=== PATIENT | female | born 1940 | race Caucasian/White ===

== ENCOUNTER 2018-07-14 21:45 | Inpatient (IN) | payer MEDICARE ==
[2018-07-14] MEDS ORDERED: Piperacillin/Tazobac ADVAN(*) 3.375 GM in NS 0.9% 100 ML* 100 ML IVPB ONE (22:02)
[2018-07-14] MEDS ORDERED: Vancomycin(*) 1,000 MG in NS 0.9% 250 ML* 250 ML IVPB ONE (22:02)
[2018-07-14] MEDS ORDERED: Morphine VIAL* 10 MG/ML 1 ML VIAL IV ONE (22:03)
--- NOTE | 2018-07-14 22:03 | ED ---
Lower Extremity - HPI Summary HPI Summary: Pt is a 77 y/o F presenting to the ED brought in by EMS from [facility] for lower extremity pain in her bilateral legs. The pt reports increased LE edema x1 month and pain throughout the week. The pt denies fever. - History of Current Complaint Chief Complaint: EDShortnessOfBreath Stated Complaint: SOB PER EMS Time Seen by Provider: 07/14/18 21:52 Hx Obtained From: Patient Hx Last Menstrual Period: n/a Mechanism Of Injury: Unknown Onset of Pain: Days Onset/Duration: Still Present Severity Initially: Moderate Severity Currently: Severe Pain Intensity: 9 Pain Scale Used: 0-10 Numeric Timing: Constant, Lasting Days Location: Is Diffuse - lower extremity Character Of Pain: Aching Associated Signs And Symptoms: Positive: Swelling, Redness. Negative: Fever Aggravating Factor(s): Standing, Ambulation, Movement Alleviating Factor(s): Rest Able to Bear Weight: No - Allergies/Home Medications Allergies/Adverse Reactions: Allergies Allergy/AdvReac Type Severity Reaction Status Date / Time Penicillins Allergy Unknown Verified 07/14/18 22:08 Reaction Details Sulfa (Sulfonamide Allergy Unknown Verified 07/14/18 22:07 Antibiotics) Reaction Details Home Medications: Home Medications Fexofenadine HCl 60 mg PO DAILY 07/14/18 [History Confirmed 07/14/18] Fluticasone Propionate 50 mcg INTRANASAL DAILY 07/14/18 [History Confirmed 07/14] Montelukast Sodium TAB* 10 mg PO DAILY 07/14/18 [History Confirmed 07/14/18] Namenda 14 mg PO DAILY 07/14/18 [History Confirmed 07/14/18] Spiriva CAP.INH* 2 puff INH DAILY 07/14/18 [History Confirmed 07/14/18] PMH/Surg Hx/FS Hx/Imm Hx Previously Healthy: No Endocrine/Hematology History: Reports: Hx Diabetes - insulin, Hx Anemia Denies: Hx Anticoagulant Therapy, Hx Blood Disorders, Hx Blood Transfusions, Hx Bone Marrow Disease, Hx Systemic Lupus Erythematosus, Hx Sickle Cell Disease , Hx Thyroid Disease, Hx Unexplained Bleeding Cardiovascular History: Reports: Hx Coronary Artery Disease, Hx Embolism - PAtient states in her corotid artery, Hx Hypercholesterolemia, Hx Hypertension, Hx Syncope - 2 weeks ago in shower Denies: Hx Aneurysm, Hx Angina, Hx Angioplasty, Hx Auto Implanted Cardiovert Defib, Hx Cardiac Arrest, Hx Cardiomegaly, Hx Congenital Heart Disease, Hx Congestive Heart Failure, Hx Deep Vein Thrombosis, Hx Hypotension, Hx Pacemaker/ ICD, Hx Peripheral Vascular Disease, Hx Rheumatic Fever, Hx Valvular Heart Disease Respiratory History: Reports: Hx Chronic Obstructive Pulmonary Disease (COPD), Hx Pneumonia, Hx Seasonal Allergies, Hx Sleep Apnea Denies: Hx Asthma, Hx Chronic Bronchitis, Hx Cystic Fibrosis, Hx Lung Cancer , Hx Pleural Effusion, Hx Pulmonary Edema, Hx Pulmonary Embolism GI History: Reports: Hx Gall Bladder Disease, Hx Gastroesophageal Reflux Disease - TUMS Denies: Hx Cirrhosis, Hx Crohn's Disease, Hx Diverticulosis, Hx Gastrointestinal Bleed, Hx Hiatal Hernia, Hx Irritable Bowel, Hx Jaundice, Hx Obstructive Bowel, Hx Ileostomy, Hx Pyloric Stenosis, Hx Ulcer History: Reports: Other Problems/Disorders - some kind of kidney problem when young, hospitalized. Denies: Hx Acute Renal Failure, Hx Benign Prostatic Hyperplasia, Hx Chronic Renal Failure, Hx Dialysis, Hx Kidney Infection - chronic UTI, Hx Kidney Stones Musculoskeletal History: Reports: Hx Arthritis, Hx Bursitis, Hx Gout - Last year , Hx Orthopedic Injury - Fell on knee 2 weeks ago. Has been to physical therapy Denies: Hx Back Problems, Hx Congenital Bone Abnormalities, Hx Fibromyalgia, Hx Osteoporosis, Hx Scoliosis, Hx Tendonitis Sensory History: Reports: Hx Cataracts, Hx Contacts or Glasses, Hx Glaucoma, Hx Macular Degeneration, Hx Vision Problem Denies: Hx Eye Injury, Hx Eye Prosthesis, Hx Legally Blind, Hx Deafness, Hx Hearing Aid, Hx Hearing Problem Opthamlomology History: Reports: Hx Cataracts, Hx Contacts or Glasses, Hx Glaucoma, Hx Macular Degeneration, Hx Vision Problem Denies: Hx Eye Injury, Hx Eye Prosthesis, Hx Legally Blind Neurological History: Reports: Hx Dementia, Hx Headaches, Hx Transient Ischemic Attacks (TIA) Denies: Hx Developmental Delay, Hx Migraine, Hx Nerve Disease, Hx Seizures, Hx Spinal Cord Injury Psychiatric History: Reports: Hx Anxiety - "sometimes" Denies: Hx Attention Deficit Hyperactivity Disorder, Hx Eating Disorder, Hx Depression, Hx Panic Disorder, Hx Post Traumatic Stress Disorder, Hx Inpatient Treatment, Hx Community Mental Health Tx, Hx Schizophrenia, Hx Bipolar Disorder , Hx Suicide Attempt, Hx of Violent Episodes Against Others, Hx Substance Abuse - Cancer History Hx Chemotherapy: No Hx Radiation Therapy: No Hx Palliative Cancer Treatment: No - Surgical History Surgery Procedure, Year, and Place: BILAT SHOULDER ROTATOR CUFF REPAIRS; BILAT CARPAL TUNNEL, LIPOTRIPSY OF RENAL CALCULI, GALL BLADDER REMOVED. APPENDECTOMY, Carotid stents b/l Hx Anesthesia Reactions: No - Immunization History Date of Tetanus Vaccine: PT STATES UNSURE Date of Influenza Vaccine: NONE Infectious Disease History: No Infectious Disease History: Denies: Hx Clostridium Difficile, Hx Hepatitis, Hx Human Immunodeficiency Virus (HIV), Hx of Known/Suspected MRSA, Hx Shingles, Hx Tuberculosis, Hx Known/ Suspected VRE, Hx Known/Suspected VRSA, History Other Infectious Disease, Traveled Outside the [place] in Last 30 Days - Family History Known Family History: Positive: Hypertension - Social History Lives: [place] Alcohol Use: None Hx Substance Use: No Substance Use Type: Reports: None Hx Tobacco Use: No Smoking Status (MU): Never Smoked Tobacco Review of Systems Negative: Fever Positive: Myalgia, Edema All Other Systems Reviewed And Are Negative: Yes Physical Exam - Summary Physical Exam Summary: VITAL SIGNS: Reviewed. GENERAL: Patient is a well-developed and nourished female who is lying comfortable in the stretcher. Patient is not in any acute respiratory distress. HEAD AND FACE: No signs of trauma. No ecchymosis, hematomas or skull depressions. No sinus tenderness. EYES: PERRLA, EOMI x 2, No injected conjunctiva, no nystagmus. EARS: Hearing grossly intact. Ear canals and tympanic membranes are within normal limits. MOUTH: Oropharynx within normal limits. NECK: Supple, trachea is midline, no adenopathy, no JVD, no carotid bruit, no c- spine tenderness, neck with full ROM. CHEST: Symmetric, no tenderness at palpation LUNGS: Decreased breath sounds bilaterally. CVS: Regular rate and rhythm, S1 and S2 present, no murmurs or gallops appreciated. ABDOMEN: Soft, non-tender. No signs of distention. No rebound no guarding, and no masses palpated. Bowel sounds are normal. EXTREMITIES: Bilateral LE edema and erythema. Tenderness and warmth in L leg. NEURO: Alert and oriented x 3. No acute neurological deficits. Speech is normal and follows commands. SKIN: Dry and warm Triage Information Reviewed: Yes Vital Signs On Initial Exam: Initial Vitals Temp Pulse Resp BP Pulse Ox 98 F 75 22 169/52 94 07/14/18 21:48 07/14/18 21:48 03/05/19 21:48 07/14/18 21:48 07/14/18 21:48 Vital Signs Reviewed: Yes Diagnostics - Vital Signs Vital Signs Temp Pulse Resp BP Pulse Ox 07/14/18 21:48 98 F 75 22 169/52 94 - Laboratory Result Diagrams: 07/14/18 22:18 07/14/18 22:18 Lab Statement: Any lab studies that have been ordered have been reviewed, and results considered in the medical decision making process. - Radiology Chest x-ray Radiology Interpretation Completed By: ED Physician Summary of Radiographic Findings: Bilateral venous congestion. Pending official radiology report. - Ultrasound No standard instances Ultrasound Interpretation Completed By: Radiologist Summary of Ultrasound Findings: No bilateral lower extremity deep vein thrombosis. ED physician has reviewed this report. - EKG 2210 Cardiac Rate: NL - 78bpm EKG Rhythm: Sinus Rhythm ST Segment: Normal Ectopy: None Lower Extremity Course/Dx - Course Course Of Treatment: Pt is a 77 y/o F presenting to the ED brought in by EMS for lower extremity pain in her bilateral legs. The pt reports increased LE edema x1 month and pain throughout the week. The pt denies fever. Upon exam, there is bilateral LE edema and erythema as well as tenderness and warmth in L leg. Pt also has decreased breath sounds. CXR shows bilateral venous congestion. EKG shows NSR at 78bpm. US of LE reveals no bilateral lower extremity deep vein thrombosis. Pt will be admitted to [facility] under Dr. Gallagher with a dx of cellulitis. - Diagnoses Provider Diagnoses: Cellulitis Discharge - Sign-Out/Discharge Documenting (check all that apply): Patient Departure - Discharge Plan Condition: Stable Disposition: ADMITTED TO [facility] Referrals: [facility] PHYSICIAN REFERRAL [Outside] - Attestation Statements Document Initiated by Scribe: Yes Documenting Scribe: Johana Bang Provider For Whom Scribe is Documenting (Include Credential): Glen Vega MD. Scribe Attestation: Johana Deng, scribed for Glen Vega MD. on 07/15/18 at 0146. Status of Scribe Document: Ready Consult Consult: 0035 - Spoke with Dr. Gallagher who will be the accepting physician to [facility].
[2018-07-14] MEDS ORDERED: Furosemide IV* 10 MG/ML VIAL (40 MG) IV ONE (22:04)
[2018-07-14 22:33] LABS: ABS Basophils 0.1 10^3/ul (0-0.2); ABS Eosinophils 0.3 10^3/ul (0-0.6); ABS Lymphocytes 1.4 10^3/ul (1.0-4.8); ABS Monocytes 0.9 10^3/ul (0-0.8); ABS Neutrophils 6.7 10^3/ul (1.5-7.7); ABS Nucleated RBC 0 10^3/ul; Hematocrit 33 % (35-47); Hemoglobin 10.5 g/dl (12.0-16.0); Lymphocyte % 15.1 %; Mean Corpuscular HGB Conc 32 g/dl (31-36); Mean Corpuscular Hemoglobin 29 pg (27-31); Mean Corpuscular Volume 90 fL (80-97); Mean Platelet Volume 7.8 fL (7.4-10.4); Nucleated Red Blood Cells % 0; Platelet Count 262 10^3/ul (150-450); Red Blood Count 3.63 10^6/ul (4.00-5.40); Red Cell Distribution Width 16 % (10.5-15); White Blood Count 9.4 10^3/ul (3.5-10.8)
[2018-07-14 22:43] LABS: Activated Partial Thrombo Time 27.7 seconds (26.0-36.3); INR 0.95 (0.77-1.02)
[2018-07-14 22:52] LABS: ALT 15 U/L (7-52); AST 16 U/L (13-39); Albumin 3.5 g/dL (3.2-5.2); Alkaline Phosphatase 75 U/L (34-104); Anion Gap 6 mmol/L (2-11); BUN/Creatinine Ratio 25.6 (8-20); Blood Urea Nitrogen 32 mg/dL (6-24); C Reactive Protein 21.03 mg/L (<8.01); CO2 Carbon Dioxide 30 mmol/L (22-32); Calcium 9.1 mg/dL (8.6-10.3); Chloride 99 mmol/L (101-111); EGFR African American 50.2 (>60); EGFR Non-African American 41.4 (>60); Globulin 3.4 g/dL (2-4); Glucose 316 mg/dL (70-100); Potassium 4.3 mmol/L (3.5-5.0); Sodium 135 mmol/L (135-145); Total Protein 6.9 g/dL (6.4-8.9)
[2018-07-14 22:53] LABS: Troponin I 0.01 ng/mL (<0.04)
[2018-07-14] MEDS ORDERED: Levofloxacin 750 MG IVPREMIX(* 750 MG/150 ML BAG IVPB ONE (23:20)
[2018-07-15] MEDS ORDERED: Insulin REGULAR(*) 1 UNITS UNIT IV PUSH ONE (00:31)
[2018-07-15] MEDS ORDERED: Ondansetron INJ* 2 MG/ML VIAL IV PRN (01:18)
[2018-07-15] MEDS ORDERED: Docusate CAP* 100 MG PO PRN (01:18)
[2018-07-15] MEDS ORDERED: Senna TAB PO PRN (01:18)
[2018-07-15] MEDS ORDERED: Dextrose 50% Syringe 50 ML* 25 GM/50 ML SYRINGE IV PUSH PRN ×2 (01:21)
[2018-07-15] MEDS ORDERED: Albuterol HFA INHALER* 8 gm MDI INH PRN (01:23)
[2018-07-15 01:37] LABS: % Iron Saturation 11 % (15-55); Iron 41 ug/dL (50-212); Total Iron Binding Capacity 385 mcg/dL (250-450); Transferrin 275 mg/dL (203-362)
[2018-07-15 01:57] LABS: Ferritin 27.5 ng/mL (11-307)
[2018-07-15] MEDS ORDERED: Spiriva Inhaler DEVICE* 1 EACH DEVICE INH SCH ×2 (02:00→09:00)
[2018-07-15 02:47] LABS: Urine Appearance Turbid; Urine Bacteria 1+ (Absent); Urine Bilirubin Negative (Negative); Urine Blood Negative (Negative); Urine Color Yellow; Urine Glucose 3+(>=500 mg/dL) (Negative); Urine Ketones Negative (Negative); Urine Nitrite Negative (Negative); Urine Protein 1+(30 mg/dL) (Negative); Urine Red Blood Cell Trace(0-2/hpf) (Absent); Urine Specific Gravity 1.009 (1.010-1.030); Urine Squamous Epithelial Cell Present (Absent); Urine Urobilinogen Negative (Negative); Urine White Blood Cell 2+(11-20/hpf) (Absent)
--- NOTE | 2018-07-15 04:00 | PN ---
Progress Note - Progress Note Date of Service: 07/15/18 Note: Bladder scan >400, straight cath x 1
[2018-07-15] MEDS: Acetaminophen TAB* 325 MG PO PRN ×3 (04:05→18:22)
[2018-07-15] MEDS: Heparin VIAL(*) 5000 UNITS/ML VIAL (FIVE THOUSAND) SUBCUT SCH ×3 (06:03→20:54)
[2018-07-15 06:04] LABS: ABS Basophils 0.1 10^3/ul (0-0.2); ABS Eosinophils 0.3 10^3/ul (0-0.6); ABS Lymphocytes 1.2 10^3/ul (1.0-4.8); ABS Monocytes 0.9 10^3/ul (0-0.8); ABS Neutrophils 6.6 10^3/ul (1.5-7.7); ABS Nucleated RBC 0 10^3/ul; Eosinophil % 2.9 %; Hematocrit 33 % (35-47); Hemoglobin 10.6 g/dl (12.0-16.0); Lymphocyte % 13.2 %; Mean Corpuscular HGB Conc 33 g/dl (31-36); Mean Corpuscular Hemoglobin 29 pg (27-31); Mean Corpuscular Volume 90 fL (80-97); Mean Platelet Volume 8.1 fL (7.4-10.4); Nucleated Red Blood Cells % 0; Platelet Count 234 10^3/ul (150-450); Red Blood Count 3.63 10^6/ul (4.00-5.40); Red Cell Distribution Width 15 % (10.5-15); White Blood Count 9.1 10^3/ul (3.5-10.8)
[2018-07-15 06:24] LABS: BUN/Creatinine Ratio 26.1 (8-20); EGFR African American 53.1 (>60); EGFR Non-African American 43.9 (>60); HDL Cholesterol 43.3 mg/dL; Potassium 4.1 mmol/L (3.5-5.0)
--- NOTE | 2018-07-15 07:40 | HP ---
CC: [facility] * HISTORY AND PHYSICAL: DATE OF ADMISSION: 07/15/18 TIME OF EVALUATION: 0100 PRIMARY CARE PHYSICIAN: [facility]. CHIEF COMPLAINT: Shortness of breath, lower extremity swelling. HISTORY OF PRESENT ILLNESS: This is a 77-year-old female with a past medical history of hypertension, coronary artery disease, diabetes, and dementia who presented to the emergency room form [facility] for shortness of breath. History is limited due to the patient's dementia, but she states she has been short of breath here and there, unable to quantify how long this has been going on. She states she has been coughing. She denies any chest pain. No nausea, vomiting, or diarrhea. No abdominal pain. She states sometimes she has issues with urinary retention. Normally, she ambulates with a walker. She states she has been gaining some weight and noticed swelling in her legs and tenderness in both upper legs, worse in the left side than the right. Otherwise , remaining review of systems is limited and negative. In the emergency room, the patient had labs, imaging. She was given vancomycin, 2 mg of morphine, Levaquin, 4 units of insulin, 40 mg of Lasix, and referred to the hospitalist service for further evaluation. PAST MEDICAL HISTORY: 1. Morbid obesity. 2. Hypertension. 3. Coronary artery disease. 4. Obstructive sleep apnea. It does not appear the patient wears a CPAP at night, it is unclear why. 5. Diabetes, on insulin. 6. Dementia. 7. CKD. 8. Hyperlipidemia. 9. COPD. 10. GERD. 11. History of urinary retention. 12. History of recurrent UTIs, on prophylaxis. MEDICATIONS: 1. Tylenol 650 mg every 4 hours as needed. 2. Guaifenesin 10 mL every 4 hours as needed for cough. 3. Milk of Magnesia as needed. 4. Sublingual nitro as needed. 5. Albuterol 2 puffs every 4 hours as needed. 6. Namenda XR 14 mg p.o. daily. 7. Singulair 10 mg daily. 8. Nitrofurantoin 50 mg p.o. daily. 9. Omeprazole 20 mg daily. 10. Oxybutynin ER 10 mg daily. 11. Acyclovir 200 mg p.o. daily. 12. Aspirin 81 mg p.o. daily. 13. Cozaar 25 mg daily. 14. Fexofenadine 60 mg daily. 15. Lasix 40 mg daily. 16. Lipitor 80 mg daily. 17. Fluticasone 50 mcg 2 sprays each nostril daily. 18. Multivitamin daily. 19. Spiriva 2 puffs inhaled daily. 20. Metoprolol 50 mg p.o. b.i.d. 21. Lantus 35 units subcu b.i.d. 22. Symbicort 80/4.5 two puffs inhaled b.i.d. 23. NovoLog sliding scale. ALLERGIES: PENICILLIN and SULFA. FAMILY HISTORY: Unable to obtain. SOCIAL HISTORY: The patient resides at [facility]. Her daughter Zulay Wilson [phone] is her healthcare proxy. No history of tobacco, alcohol or illicit drug use. MOLST form is a DNR/DNI, comfort measures, but requesting admission for further workup. REVIEW OF SYSTEMS: Limited due to the patient's dementia. PHYSICAL EXAMINATION GENERAL: No acute distress, resting comfortably. VITALS: Temp 98, pulse rate 73, respiratory rate 17, oxygen saturation 98% on 2 L, blood pressure 145/55. HEENT: Head: Normocephalic. Pupils equal and reactive. Oropharynx: Mucous membranes moist. NECK: Supple. No lymphadenopathy. RESPIRATORY: Diminished breath sounds. Bilateral rales at the bases. No increased work of breathing. CARDIAC: Regular rate and rhythm. Soft systolic murmur heard throughout. ABDOMEN: Morbidly obese. Hypoactive bowel sounds. Soft and nontender. EXTREMITIES: The patient with lower extremity 2+ pitting edema with some mild erythema bilaterally. No warmth. No wounds or drainage. Tender bilaterally. Distal pulses. NEUROLOGIC: Alert and oriented x3. Oriented to place and self. No gross focal neurologic deficits. DIAGNOSTIC STUDIES/LAB DATA: White count 9.4, hemoglobin 10.5, hematocrit 33, platelets 262. INR is 0.95. Sodium 135, potassium 4.3, chloride 99, bicarb 30 , BUN 32, creatinine 1.25, glucose 316. Troponin 0.01. CRP is 21, BNP 180. Chest x- ray consistent with pulmonary edema. Venous Doppler, no bilateral lower extremity DVT. EKG shows normal sinus rhythm. ASSESSMENT: This is a 77-year-old female with a past medical history of diabetes, hypertension, chronic kidney disease, who presents to the emergency room with shortness of breath, lower extremity edema. 1. Shortness of breath with lower extremity edema. Assessment: The patient's history and physical are consistent with acute decompensated congestive heart failure. It is unclear of the etiology behind her heart failure. She does not have any chest pain. Her troponin is negative. It could be dietary related. It does not appear that she has had heart failure in the past. I encouraged her to have an echo as there is not one in our system. There was a concern in the emergency room that the patient had lower extremity cellulitis, though she has no white count, she has a mildly elevated CRP. Her extremities are not warm. I think that there is swelling and erythema bilaterally due to her congestive heart failure. Plan: We will admit to telemetry, trend her troponins. We will continue her on Lasix 40 mg. We will check a bladder scan q.8 hours as the patient has issues with urinary retention. Monitor Is and Os. Obtain an echocardiogram. Continue on the baby aspirin. Continue her on the metoprolol and her Cozaar as well. Check a lipid panel. 2. Anemia. The patient's blood counts have dropped. Normocytic anemia. Denies any GI bleeding. This is compared to 2015 with the most recent CBC done. This could be anemia of chronic disease. Plan: We will check iron studies. 3. Diabetes with an elevated blood sugar in the emergency room. We will check hemoglobin A1c. Continue her on Lantus and lispro sliding scale. 4. Chronic medical problems. We will resume her home medications as prescribed. 5. FEN. Low-salt, diabetic diet. 6. DVT prophylaxis. The patient scores high risk. We will place her on heparin subcu t.i.d. 7. Code status. The patient is a DNR/DNI. PATIENT TIME: Greater than 30 minutes spent doing this history and physical, more than half the time spent in direct patient contact. [id number]/[facility] #: [id number] MARTITA
[2018-07-15] MEDS: Tiotropium CAP.INH* CAP.INH/18 MCG (USE ORDER SET !) INH SCH (08:12)
[2018-07-15] MEDS ORDERED: Nitrofurantoin Macrocrystals* 50 MG CAP PO SCH (09:00)
[2018-07-15] MEDS ORDERED: Memantine XR * 7 MG CAP.XR PO SCH (09:00)
[2018-07-15] MEDS ORDERED: Aspirin EC TAB* 325 MG PO SCH (09:00)
[2018-07-15] MEDS ORDERED: Furosemide IV* 10 MG/ML VIAL (40 MG) IV SCH (09:00)
[2018-07-15] MEDS: Aspirin 81 mg CHEW TAB* 81 MG TAB.CHEW PO SCH (09:32)
[2018-07-15] MEDS: Metoprolol Tartrate TAB* 50 mg PO SCH ×2 (09:32→20:09)
[2018-07-15] MEDS: Pantoprazole TAB * 40 MG TAB PO SCH (09:32)
[2018-07-15] MEDS: Losartan TAB* 25 MG PO SCH (09:32)
[2018-07-15] MEDS: Insulin GLARGINE(*) 1 UNITS UNIT SUBCUT SCH ×2 (09:33→20:54)
[2018-07-15] MEDS: Insulin LISPRO* 1 UNITS UNIT SUBCUT SCH ×6 (09:33→19:16)
[2018-07-15] MEDS: Oxybutynin XL TAB* 5 MG PO SCH (09:42)
[2018-07-15] MEDS: Fluticasone NASAL SPRAY 50MCG* 16 gm SPRAY BTL BOTH NARES SCH (09:42)
[2018-07-15] MEDS: Acyclovir* 200 MG CAP PO SCH (10:37)
[2018-07-15] MEDS ORDERED: Perflutren Lipid Microsphere* 3 ML VIAL ONE (10:43)
--- NOTE | 2018-07-15 14:03 | ECHO ---
Patient: FADY BERMEO [facility] Rec#: [id number] : 1940 Date: 07/15/2018 Age: 77y Weight: kg / NaN lbs Sex: F Room#: 441-01 Admit Date#: 07/15/2018 Type: Inpatient Referring: Johana Gallagher Reading: Montserrat Ribeiro MD Operations Lead: Shana Chandra RN [facility] Transthoracic Echocardiogram Indication: CHF BP: 150/66 HR: 82 Rhythm: NSR Findings History: CAD, HTN, HLD, DM, COPD, RADHA, obesity, syncope Technical Comments: The study is technically limited due to poor acoustic windows. The study is technically limited due to patient body habitus. The study is technically limited due to the patient's history of COPD. Left Ventricle: The left ventricular chamber size is decreased. Moderate concentric left ventricular hypertrophy is observed.High velocities mid cavity, dagger shaped and in LVOT c/w dynamic cavity obstruction. Global left ventricular wall motion and contractility are within normal limits. The left ventricle appears hyperdynamic. The estimated ejection fraction is greater than 65%. Abnormal left ventricular diastolic filling is observed, consistent with impaired relaxation. The left ventricular diastolic filling pattern is consistent with elevated left ventricular end-diastolic pressure. The patient was unable to perform a Valsalva maneuver. Left Atrium: The left atrium is not well visualized. The left atrium is mildly dilated. Right Ventricle: The right ventricle is not well visualized. The right ventricle is slightly dilated. The right ventricular global systolic function is normal. Right Atrium: The right atrium is not well visualized. Aortic Valve: The aortic valve structure is not well visualized. The aortic valve leaflets are mildly thickened. Mild aortic leaflet calcification is visualized. Systolic excursion of the aortic valve is normal. There is no evidence of aortic regurgitation. The mean gradient of the aortic valve is 12 mmHg. The peak instantaneous gradient of the aortic valve is 36 mmHg. The aortic valve area, by peak velocities, is calculated at 1.6 cm2. The aortic valve area, by VTI's, is calculated at 2 cm2. Mitral Valve: There is posterior mitral annular calcification.moderate to severe. The mitral valve leaflets are mildly thickened. There is a trace of mitral regurgitation. There is no evidence of mitral stenosis. Tricuspid Valve: The tricuspid valve leaflets are normal. There is mild tricuspid regurgitation. The right ventricular systolic pressure is estimated at 49 mmHg. There is evidence of moderate pulmonary hypertension. There is no tricuspid stenosis. Pulmonic Valve: The pulmonic valve structure is not well visualized. There is a trace pulmonic regurgitation. There is no pulmonic stenosis. Pericardium: There is no significant pericardial effusion. A pericardial fat pad is visualized. Aorta: The ascending aorta is not well visualized. There is no dilatation of the aortic arch. There is no dilation of the aortic root. Pulmonary Artery: The main pulmonary artery is not well visualized. Venous: The venous system is not well visualized. The inferior vena cava is not visualized. Contrast: Definity was used to optimize study. A total of 4 ml of diluted Definity was given IV. Conclusions The left ventricular chamber size is decreased. Moderate concentric left ventricular hypertrophy is observed. The left ventricle appears hyperdynamic with LV cavity obstruction in systole. The estimated ejection fraction is greater than 65%. Abnormal left ventricular diastolic filling is observed, consistent with impaired relaxation. The left ventricular diastolic filling pattern is consistent with elevated left ventricular end-diastolic pressure. The right ventricle is slightly dilated. The right ventricular global systolic function is normal. The aortic valve leaflets are mildly thickened and calcific with good excursion. 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 There is moderate to severe posterior mitral annular calcification.. There is a trace of mitral regurgitation. There is mild tricuspid regurgitation. There is evidence of moderate pulmonary hypertension estimated at 49 mmHg. No prior echo available to compare. Measurements Name Value Normal Range RVIDd (AP) 2D 2.8 cm (0.9 - 2.6) IVSd (2D) 1.5 cm (0.6 - 1) LVPWd (2D) 1.5 cm (0.6 - 1) IVS:LVPW ratio (2D) 1 ratio - LVIDd (2D) 3.1 cm (3.6 - 5.4) LVIDs (2D) 2 cm - LV FS (2D) 35 % (25 - 45) EF Teichholz (2D) 66 % - Aortic Annulus 2.2 cm (1.4 - 2.6) Ao root diameter (2D) 2.9 cm (2.1 - 3.5) Aortic arch 3 cm (1.8 - 3.4) LA dimension (AP) 2D 4.1 cm (2.3 - 3.8) LAd ISD 4CH 3.9 cm (2.9 - 5.3) LA ISD 4CH W 3.7 cm (2.5 - 4.5) Name Value Normal Range LV mass (2D) 164.66 g - Name Value Normal Range MV E-wave Vmax 1.3 m/sec - MV deceleration time 331 msec - MV A-wave Vmax 0.95 m/sec - MV E:A ratio 1.4 ratio - LV septal e' Vmax 0.04 m/sec - LV lateral e' Vmax 0.06 m/sec - LV E:e' septal ratio 32.5 ratio - LV E:e' lateral ratio 21.7 ratio - Name Value Normal Range AV Vmax 3 m/sec - AV VTI 51.8 cm - AV peak gradient 36 mmHg - AV mean gradient 12 mmHg - LVOT diameter 1.9 cm - LVOT Vmax 1.7 m/sec - LVOT VTI 36.6 cm - LVOT peak gradient 12 mmHg - LVOT mean gradient 5 mmHg - DOI (VTI) 0.71 ratio - DOI (Vmax) 0.57 ratio - EVAN (continuity Vmax) 1.6 cm2 - EVAN (continuity VTI) 2 cm2 - TANA Vmax 0.72 m/sec - Name Value Normal Range MV Vmax 1.8 m/sec - MV VTI 46.5 cm - MV peak gradient 13 mmHg - MV mean gradient 4 mmHg - MV PHT 77 msec - MVA (PHT) 2.9 cm2 - MVA (continuity VTI) 2.2 cm2 - Name Value Normal Range TR Vmax 3.2 m/sec - TR peak gradient 41 mmHg - RAP 8 mmHg - RVSP 49 mmHg - Name Value Normal Range PV Vmax 1.2 m/sec -
--- NOTE | 2018-07-15 15:29 | PN ---
Subjective Date of Service: 07/15/18 Interval History: C/O stiff neck. Less SOB today. Objective Active Medications: Acetaminophen (Tylenol Tab*) 650 mg PO Q4H PRN PRN Reason: FEVER/PAIN Last Admin: 07/15/18 09:35 Dose: 650 mg Acyclovir (Zovirax Cap*) 200 mg PO DAILY [facility] Last Admin: 07/15/18 10:37 Dose: 200 mg Albuterol (Ventolin Hfa Inhaler*) 2 puff INH Q4H PRN PRN Reason: SOB/WHEEZING Aspirin (Aspirin 81 Mg Chew Tab*) 81 mg PO DAILY [facility] Last Admin: 07/15/18 09:32 Dose: 81 mg Atorvastatin Calcium (Lipitor*) 80 mg PO DAILY [facility] Device (Tiotropium Inhaler Device*) 1 each INH .USE w/ SPIRIVA CAPS [facility] Dextrose (D50w Syringe 50 Ml*) 12.5 gm IV PUSH .FOR FS < 60 - SS PRN PRN Reason: FS < 60 Docusate Sodium (Colace Cap*) 100 mg PO BID PRN PRN Reason: CONSTIPATION Fluticasone Propionate (Flonase Nasal [place] 50mcg*) 2 spray BOTH NARES DAILY [facility] Last Admin: 07/15/18 09:42 Dose: 2 spray Heparin Sodium (Porcine) (Heparin Vial(*)) 5,000 units SUBCUT Q8HR [facility] Last Admin: 07/15/18 13:27 Dose: 5,000 units Insulin Glargine (Lantus(*)) 35 units SUBCUT Q12H [facility] Last Admin: 07/15/18 09:33 Dose: 35 units Insulin Human Lispro (Humalog*) 0 units SUBCUT AC [facility]; Protocol Last Admin: 07/15/18 13:26 Dose: 12 units Insulin Human Lispro (Humalog*) 0 units SUBCUT AC [facility]; Protocol Last Admin: 07/15/18 13:26 Dose: 2 units Losartan Potassium (Cozaar Tab*) 50 mg PO DAILY [facility] Last Admin: 07/15/18 09:32 Dose: 50 mg Memantine (Namenda Xr *) 7 mg PO DAILY [facility] Last Admin: 07/15/18 09:42 Dose: 7 mg Metoprolol Tartrate (Lopressor Tab*) 50 mg PO BID [facility] Last Admin: 07/15/18 09:32 Dose: 50 mg Montelukast Sodium (Singulair Tab*) 10 mg PO BEDTIME [facility] Ondansetron HCl (Zofran Inj*) 4 mg IV Q4H PRN PRN Reason: NAUSEA/VOMITING Oxybutynin Chloride (Ditropan Xl Tab*) 10 mg PO DAILY [facility] Last Admin: 07/15/18 09:42 Dose: 10 mg Pantoprazole Sodium (Protonix Tab*) 40 mg PO DAILY [facility] Last Admin: 07/15/18 09:32 Dose: 40 mg Senna (Senokot Tab*) 1 tab PO BID PRN PRN Reason: CONSTIPATION Tiotropium [place] (Spiriva Cap.Inh*) 1 cap INH DAILY [facility] Last Admin: 07/15/18 08:12 Dose: 1 cap Torsemide (Demadex*) 40 mg PO DAILY [facility] Vital Signs - 8 hr 07/15/18 07/15/18 07/15/18 07:37 07:58 08:00 Temperature 97.4 F Pulse Rate 71 Respiratory 18 18 19 Rate Blood Pressure 149/53 (mmHg) O2 Sat by Pulse 99 97 Oximetry 07/15/18 07/15/18 08:14 11:05 Temperature 98.0 F Pulse Rate 78 65 Respiratory 14 16 Rate Blood Pressure 113/50 (mmHg) O2 Sat by Pulse 98 97 Oximetry Oxygen Devices in Use Now: Nasal Cannula Appearance: Alert, partly up in bed, head bent forward by pillow. Flat affect. Looks comfortable. Eyes: No Scleral Icterus Respiratory: Symmetrical Chest Expansion and Respiratory Effort, Clear to Auscultation, Clear to Percussion Cardiovascular: NL Sounds; No Murmurs; No JVD, RRR, No Edema, - Extremities: No Clubbing, Cyanosis, - - 1+ edema BL Skin: No Nodules or Sclerosis, - - Lower legs red and scaly, L worse than R. Neurological: NL Sensation - Cooperative, gave her age as 76, did not know her present residence. Flat affect, passive. No tremor Result Diagrams: 07/15/18 05:34 07/15/18 05:33 Microbiology and Other Data: Microbiology 07/15/18 01:30 Nasal Screen MRSA (PCR) - Final Nasal Mrsa Not Detected Assess/Plan/Problems-Billing Assessment: - Patient Problems (1) Diastolic CHF Current Visit: Yes Status: Acute Code(s): I50.30 - UNSPECIFIED DIASTOLIC ( CONGESTIVE) HEART FAILURE SNOMED Code(s): 359141719 Comment: acute on chronic. Received 2 doses IV furosemide with good diuresis. Start torsemide 60 mg po daily 07/16 (was on furosemide 40 mg daily at SNF). BMP 07/16. (2) Dementia Current Visit: Yes Status: Acute Code(s): F03.90 - UNSPECIFIED DEMENTIA WITHOUT BEHAVIORAL DISTURBANCE SNOMED Code(s): 48987574 Comment: Continue memantine, corrected to SNF dose. (3) DM w/o complication type II Current Visit: No Status: Chronic Code(s): E11.9 - TYPE 2 DIABETES MELLITUS WITHOUT COMPLICATIONS SNOMED Code(s): 229507017 Comment: Continue lantus and SS lispro. Consistent carb diet. (4) CAD (coronary artery disease) Current Visit: No Status: Chronic Code(s): I25.10 - ATHSCL HEART DISEASE OF [place] CORONARY ARTERY W/O ANG PCTRS SNOMED Code(s): 76600420 Comment: Continue aspirin. (5) Morbid obesity Current Visit: Yes Status: Acute Code(s): E66.01 - MORBID (SEVERE) OBESITY DUE TO EXCESS CALORIES SNOMED Code(s): 375767690 Comment: BMI 44.7.
--- NOTE | 2018-07-15 15:37 | PN ---
Subjective Date of Service: 07/15/18 Interval History: See earlier note today. Objective Active Medications: Acetaminophen (Tylenol Tab*) 650 mg PO Q4H PRN PRN Reason: FEVER/PAIN Last Admin: 07/15/18 09:35 Dose: 650 mg Acyclovir (Zovirax Cap*) 200 mg PO DAILY [facility] Last Admin: 07/15/18 10:37 Dose: 200 mg Albuterol (Ventolin Hfa Inhaler*) 2 puff INH Q4H PRN PRN Reason: SOB/WHEEZING Aspirin (Aspirin 81 Mg Chew Tab*) 81 mg PO DAILY [facility] Last Admin: 07/15/18 09:32 Dose: 81 mg Atorvastatin Calcium (Lipitor*) 80 mg PO DAILY [facility] Device (Tiotropium Inhaler Device*) 1 each INH .USE w/ SPIRIVA CAPS [facility] Dextrose (D50w Syringe 50 Ml*) 12.5 gm IV PUSH .FOR FS < 60 - SS PRN PRN Reason: FS < 60 Docusate Sodium (Colace Cap*) 100 mg PO BID PRN PRN Reason: CONSTIPATION Fluticasone Propionate (Flonase Nasal [place] 50mcg*) 2 spray BOTH NARES DAILY [facility] Last Admin: 07/15/18 09:42 Dose: 2 spray Heparin Sodium (Porcine) (Heparin Vial(*)) 5,000 units SUBCUT Q8HR [facility] Last Admin: 07/15/18 13:27 Dose: 5,000 units Insulin Glargine (Lantus(*)) 35 units SUBCUT Q12H [facility] Last Admin: 07/15/18 09:33 Dose: 35 units Insulin Human Lispro (Humalog*) 0 units SUBCUT [facility]; Protocol Last Admin: 07/15/18 13:26 Dose: 12 units Insulin Human Lispro (Humalog*) 0 units SUBCUT AC [facility]; Protocol Last Admin: 07/15/18 13:26 Dose: 2 units Losartan Potassium (Cozaar Tab*) 50 mg PO DAILY [facility] Last Admin: 07/15/18 09:32 Dose: 50 mg Memantine (Namenda Xr *) 7 mg PO DAILY [facility] Last Admin: 07/15/18 09:42 Dose: 7 mg Metoprolol Tartrate (Lopressor Tab*) 50 mg PO BID [facility] Last Admin: 07/15/18 09:32 Dose: 50 mg Montelukast Sodium (Singulair Tab*) 10 mg PO BEDTIME [facility] Non-Formulary Medication (Namenda) 14 mg PO DAILY [facility] Ondansetron HCl (Zofran Inj*) 4 mg IV Q4H PRN PRN Reason: NAUSEA/VOMITING Oxybutynin Chloride (Ditropan Xl Tab*) 10 mg PO DAILY [facility] Last Admin: 07/15/18 09:42 Dose: 10 mg Pantoprazole Sodium (Protonix Tab*) 40 mg PO DAILY [facility] Last Admin: 07/15/18 09:32 Dose: 40 mg Senna (Senokot Tab*) 1 tab PO BID PRN PRN Reason: CONSTIPATION Tiotropium [place] (Spiriva Cap.Inh*) 1 cap INH DAILY [facility] Last Admin: 07/15/18 08:12 Dose: 1 cap Torsemide (Demadex*) 60 mg PO DAILY [facility] Vital Signs - 8 hr 07/15/18 07/15/18 07/15/18 07:37 07:58 08:00 Temperature 97.4 F Pulse Rate 71 Respiratory 18 18 19 Rate Blood Pressure 149/53 (mmHg) O2 Sat by Pulse 99 97 Oximetry 07/15/18 07/15/18 08:14 11:05 Temperature 98.0 F Pulse Rate 78 65 Respiratory 14 16 Rate Blood Pressure 113/50 (mmHg) O2 Sat by Pulse 98 97 Oximetry Oxygen Devices in Use Now: Nasal Cannula Result Diagrams: 07/15/18 05:34 07/15/18 05:33 Microbiology and Other Data: Microbiology 07/15/18 01:30 Nasal Screen MRSA (PCR) - Final Nasal Mrsa Not Detected Assess/Plan/Problems-Billing Assessment: - Patient Problems (1) Diastolic CHF Current Visit: Yes Status: Acute Code(s): I50.30 - UNSPECIFIED DIASTOLIC ( CONGESTIVE) HEART FAILURE SNOMED Code(s): 541874535 Comment: acute on chronic. Received 2 doses IV furosemide with good diuresis. Start torsemide 60 mg po daily 07/16 (was on furosemide 40 mg daily at SNF). BMP 07/16. (2) Dementia Current Visit: Yes Status: Acute Code(s): F03.90 - UNSPECIFIED DEMENTIA WITHOUT BEHAVIORAL DISTURBANCE SNOMED Code(s): 43419033 Comment: Continue memantine, corrected to SNF dose. (3) DM w/o complication type II Current Visit: No Status: Chronic Code(s): E11.9 - TYPE 2 DIABETES MELLITUS WITHOUT COMPLICATIONS SNOMED Code(s): 683869997 Comment: Continue lantus and SS lispro. Consistent carb diet. (4) CAD (coronary artery disease) Current Visit: No Status: Chronic Code(s): I25.10 - ATHSCL HEART DISEASE OF [place] CORONARY ARTERY W/O ANG PCTRS SNOMED Code(s): 31447139 Comment: Continue aspirin. (5) Morbid obesity Current Visit: Yes Status: Acute Code(s): E66.01 - MORBID (SEVERE) OBESITY DUE TO EXCESS CALORIES SNOMED Code(s): 371275146 Comment: BMI 44.7. (6) Dermatitis Current Visit: Yes Status: Acute Code(s): L30.9 - DERMATITIS, UNSPECIFIED SNOMED Code(s): 309842605 Comment: Both lower legs, L > R. HC 1% cream BID ordered.
[2018-07-15] MEDS ORDERED: oxyCODONE/Acetamin 5/325 MG* TAB PO ONE (19:57)
[2018-07-15] MEDS: Atorvastatin* 80 MG TAB PO SCH (20:09)
[2018-07-15] MEDS: Montelukast Sodium TAB* 10 MG PO SCH (20:09)
[2018-07-15] MEDS: Hydrocortisone 1% CREAM* 30 GM TUBE TOPICAL SCH (20:53)
[2018-07-16] MEDS: Heparin VIAL(*) 5000 UNITS/ML VIAL (FIVE THOUSAND) SUBCUT SCH ×2 (05:12→18:30)
[2018-07-16] MEDS: Acetaminophen TAB* 325 MG PO PRN (05:36)
[2018-07-16 06:14] LABS: BUN/Creatinine Ratio 24.8 (8-20); Calcium 8.9 mg/dL (8.6-10.3); EGFR African American 45.1 (>60); EGFR Non-African American 37.3 (>60)
[2018-07-16] MEDS: Tiotropium CAP.INH* CAP.INH/18 MCG (USE ORDER SET !) INH SCH (08:36)
[2018-07-16] MEDS: Insulin LISPRO* 1 UNITS UNIT SUBCUT SCH ×6 (08:39→18:14)
[2018-07-16] MEDS ORDERED: Torsemide TAB* 20 MG PO SCH (09:00)
[2018-07-16] MEDS: Torsemide TAB* 20 MG PO SCH (09:53)
[2018-07-16] MEDS: Metoprolol Tartrate TAB* 50 mg PO SCH ×2 (09:54→20:13)
[2018-07-16] MEDS: Losartan TAB* 25 MG PO SCH (09:55)
[2018-07-16] MEDS: Atorvastatin* 80 MG TAB PO SCH (09:55)
[2018-07-16] MEDS: Aspirin 81 mg CHEW TAB* 81 MG TAB.CHEW PO SCH (09:55)
[2018-07-16] MEDS: Acyclovir* 200 MG CAP PO SCH (09:56)
[2018-07-16] MEDS: Oxybutynin XL TAB* 5 MG PO SCH (09:56)
[2018-07-16] MEDS: oxyCODONE/Acetamin 5/325 MG* TAB PO PRN ×2 (09:56→15:53)
[2018-07-16] MEDS: Insulin GLARGINE(*) 1 UNITS UNIT SUBCUT SCH ×2 (09:57→20:12)
[2018-07-16] MEDS: Pantoprazole TAB * 40 MG TAB PO SCH (09:57)
[2018-07-16] MEDS: MEMANTINE 14 MG PO SCH (09:57)
[2018-07-16] MEDS: Hydrocortisone 1% CREAM* 30 GM TUBE TOPICAL SCH ×2 (09:58→20:17)
--- NOTE | 2018-07-16 11:32 | PN ---
Subjective Date of Service: 07/16/18 Interval History: Pt seen and examined. Meds and labs reviewed. CC: LLE pain/tenderness ROS: Denied OJEDA/dizziness, F/C, N/V, CP, SOB, increased cough, sputum production , abd pain, diarrhea, constipation, , arthralgias, throat pain, and new skin lesions. The rest of the 14 point ROS are unremarkable. PHYSICAL EXAM: GEN APPEARANCE: Awake, not in acute distress, obese HEENT: NC/AT, PERRLA, moist oral mucosa, (-) throat erythema NECK: Soft, supple, (-) cervical LAD, (-)JVD HEART: S1S2 WNL, RRR, No MRG CHEST: CTA, BL, GAE, No W/R/R ABD: Soft, ND/NT, NABS 4x Q EXT: No C/C/+1 BLLE edema, difficult to assess edema given obesity, nonpitting; tender LLE SKIN: Warm to touch PSYCH: No active psychosis, hallucinations, depression, SI/HI Objective Active Medications: Acetaminophen (Tylenol Tab*) 650 mg PO Q4H PRN PRN Reason: FEVER/PAIN Last Admin: 07/16/18 05:36 Dose: 650 mg Acyclovir (Zovirax Cap*) 200 mg PO DAILY [facility] Last Admin: 07/16/18 09:56 Dose: 200 mg Albuterol (Ventolin Hfa Inhaler*) 2 puff INH Q4H PRN PRN Reason: SOB/WHEEZING Aspirin (Aspirin 81 Mg Chew Tab*) 81 mg PO DAILY [facility] Last Admin: 07/16/18 09:55 Dose: 81 mg Atorvastatin Calcium (Lipitor*) 80 mg PO DAILY [facility] Last Admin: 07/16/18 09:55 Dose: 80 mg Device (Tiotropium Inhaler Device*) 1 each INH .USE w/ SPIRIVA CAPS [facility] Dextrose (D50w Syringe 50 Ml*) 12.5 gm IV PUSH .FOR FS < 60 - SS PRN PRN Reason: FS < 60 Docusate Sodium (Colace Cap*) 100 mg PO BID PRN PRN Reason: CONSTIPATION Fluticasone Propionate (Flonase Nasal [place] 50mcg*) 2 spray BOTH NARES DAILY [facility] Last Admin: 07/15/18 09:42 Dose: 2 spray Heparin Sodium (Porcine) (Heparin Vial(*)) 5,000 units SUBCUT Q12H [facility] Hydrocortisone (Hytone Cream 1%*) 1 applic TOPICAL BID [facility] Last Admin: 07/16/18 09:58 Dose: 1 applic Insulin Glargine (Lantus(*)) 35 units SUBCUT Q12H [facility] Last Admin: 07/16/18 09:57 Dose: 35 units Insulin Human Lispro (Humalog*) 0 units SUBCUT [facility]; Protocol Last Admin: 07/16/18 08:39 Dose: Not Given Insulin Human Lispro (Humalog*) 0 units SUBCUT [facility]; Protocol Last Admin: 07/16/18 09:57 Dose: 3 units Losartan Potassium (Cozaar Tab*) 50 mg PO DAILY [facility] Last Admin: 07/16/18 09:55 Dose: 50 mg Memantine (Namenda Xr Cap*) 14 mg PO DAILY [facility] Last Admin: 07/16/18 09:57 Dose: 14 mg Metoprolol Tartrate (Lopressor Tab*) 75 mg PO BID [facility] Last Admin: 07/16/18 09:54 Dose: 75 mg Montelukast Sodium (Singulair Tab*) 10 mg PO BEDTIME [facility] Last Admin: 07/15/18 20:09 Dose: 10 mg Ondansetron HCl (Zofran Inj*) 4 mg IV Q4H PRN PRN Reason: NAUSEA/VOMITING Oxybutynin Chloride (Ditropan Xl Tab*) 10 mg PO DAILY [facility] Last Admin: 07/16/18 09:56 Dose: 10 mg Oxycodone/Acetaminophen (Percocet 5/325 Tab*) 1 tab PO Q4H PRN PRN Reason: PAIN Last Admin: 07/16/18 09:56 Dose: 1 tab Pantoprazole Sodium (Protonix Tab*) 40 mg PO DAILY [facility] Last Admin: 07/16/18 09:57 Dose: 40 mg Senna (Senokot Tab*) 1 tab PO BID PRN PRN Reason: CONSTIPATION Tiotropium [place] (Spiriva Cap.Inh*) 1 cap INH DAILY [facility] Last Admin: 07/16/18 08:36 Dose: 1 cap Torsemide (Demadex*) 60 mg PO DAILY [facility] Last Admin: 07/16/18 09:53 Dose: 60 mg Vital Signs - 8 hr 07/16/18 07/16/18 07/16/18 04:00 04:28 08:36 Temperature 98.3 F Pulse Rate 74 82 Respiratory 18 16 Rate Blood Pressure 152/74 175/70 (mmHg) O2 Sat by Pulse 95 96 Oximetry 07/16/18 07/16/18 09:40 09:56 Temperature Pulse Rate Respiratory 15 Rate Blood Pressure 152/78 (mmHg) O2 Sat by Pulse Oximetry Oxygen Devices in Use Now: Nasal Cannula Result Diagrams: 07/15/18 05:34 07/16/18 05:37 Microbiology and Other Data: Microbiology 07/15/18 01:30 Nasal Screen MRSA (PCR) - Final Nasal Mrsa Not Detected Assess/Plan/Problems-Billing Assessment: - Patient Problems (1) Diastolic CHF Current Visit: Yes Status: Acute Code(s): I50.30 - UNSPECIFIED DIASTOLIC ( CONGESTIVE) HEART FAILURE SNOMED Code(s): 504064223 Comment: -Received 2 doses IV furosemide with good diuresis. -Continue w/Torsemide 60 mg po daily -Continue consistent carbohydrate diet -Will add low Sodium diet to her regimen -Check repeat BNP in AM (2) Dementia Current Visit: Yes Status: Acute Code(s): F03.90 - UNSPECIFIED DEMENTIA WITHOUT BEHAVIORAL DISTURBANCE SNOMED Code(s): 53296022 Comment: Continue memantine, corrected to SNF dose. (3) DM w/o complication type II Current Visit: No Status: Chronic Code(s): E11.9 - TYPE 2 DIABETES MELLITUS WITHOUT COMPLICATIONS SNOMED Code(s): 000939116 Comment: Continue lantus and SS lispro. Consistent carb diet. (4) CAD (coronary artery disease) Current Visit: No Status: Chronic Code(s): I25.10 - ATHSCL HEART DISEASE OF [place] CORONARY ARTERY W/O ANG PCTRS SNOMED Code(s): 73809266 Comment: Continue aspirin. (5) Morbid obesity Current Visit: Yes Status: Acute Code(s): E66.01 - MORBID (SEVERE) OBESITY DUE TO EXCESS CALORIES SNOMED Code(s): 278085452 Comment: BMI 44.7. (6) Dermatitis Current Visit: Yes Status: Acute Code(s): L30.9 - DERMATITIS, UNSPECIFIED SNOMED Code(s): 010823642 Comment: Both lower legs, L > R. HC 1% cream BID ordered. (7) DVT prophylaxis Current Visit: No Status: Acute Code(s): DJR3357 - SNOMED Code(s): 222070392 Comment: -Will change to Heparin SQq12H Status and Disposition: -Pt a resident of [place] -Will await PT eval
[2018-07-16] MEDS: Fluticasone NASAL SPRAY 50MCG* 16 gm SPRAY BTL BOTH NARES SCH (13:31)
[2018-07-16] MEDS: Acetaminophen TAB* 325 MG PO SCH (20:14)
[2018-07-16] MEDS: Gabapentin CAP(*) 100 MG PO SCH (20:14)
[2018-07-16] MEDS: Montelukast Sodium TAB* 10 MG PO SCH (20:14)
[2018-07-17] MEDS: oxyCODONE/Acetamin 5/325 MG* TAB PO PRN ×3 (00:06→16:09)
[2018-07-17] MEDS: Heparin VIAL(*) 5000 UNITS/ML VIAL (FIVE THOUSAND) SUBCUT SCH ×2 (05:09→17:22)
[2018-07-17 05:49] LABS: Hematocrit 31 % (35-47); Hemoglobin 10.1 g/dl (12.0-16.0); Mean Corpuscular HGB Conc 33 g/dl (31-36); Mean Corpuscular Hemoglobin 30 pg (27-31); Mean Corpuscular Volume 91 fL (80-97); Mean Platelet Volume 7.8 fL (7.4-10.4); Platelet Count 241 10^3/ul (150-450); Red Blood Count 3.42 10^6/ul (4.00-5.40); Red Cell Distribution Width 15 % (10.5-15); White Blood Count 10.8 10^3/ul (3.5-10.8)
[2018-07-17 06:05] LABS: Albumin 3.2 g/dL (3.2-5.2); BUN/Creatinine Ratio 22.8 (8-20); Calcium 8.9 mg/dL (8.6-10.3); EGFR African American 38.3 (>60); EGFR Non-African American 31.6 (>60); Globulin 3.3 g/dL (2-4); Phosphorus 4.5 mg/dL (2.5-5.0); Total Bilirubin 0.6 mg/dL (0.2-1.0); Total Protein 6.5 g/dL (6.4-8.9)
[2018-07-17] MEDS: Tiotropium CAP.INH* CAP.INH/18 MCG (USE ORDER SET !) INH SCH (08:14)
[2018-07-17] MEDS: Insulin LISPRO* 1 UNITS UNIT SUBCUT SCH ×5 (08:30→17:57)
[2018-07-17] MEDS: Hydrocortisone 1% CREAM* 30 GM TUBE TOPICAL SCH ×2 (08:40→20:52)
[2018-07-17] MEDS: Fluticasone NASAL SPRAY 50MCG* 16 gm SPRAY BTL BOTH NARES SCH (08:40)
[2018-07-17] MEDS: Metoprolol Tartrate TAB* 50 mg PO SCH ×2 (08:44→20:51)
[2018-07-17] MEDS: Gabapentin CAP(*) 100 MG PO SCH (08:46)
[2018-07-17] MEDS: Oxybutynin XL TAB* 5 MG PO SCH (08:46)
[2018-07-17] MEDS: Atorvastatin* 80 MG TAB PO SCH (08:47)
[2018-07-17] MEDS: Acyclovir* 200 MG CAP PO SCH (08:47)
[2018-07-17] MEDS: Aspirin 81 mg CHEW TAB* 81 MG TAB.CHEW PO SCH (08:47)
[2018-07-17] MEDS: Acetaminophen TAB* 325 MG PO SCH ×2 (08:47→20:50)
[2018-07-17] MEDS: Pantoprazole TAB * 40 MG TAB PO SCH (08:47)
[2018-07-17] MEDS: Losartan TAB* 25 MG PO SCH (08:47)
[2018-07-17] MEDS: Torsemide TAB* 20 MG PO SCH (08:47)
[2018-07-17] MEDS: MEMANTINE 14 MG PO SCH (08:49)
[2018-07-17] MEDS: Insulin GLARGINE(*) 1 UNITS UNIT SUBCUT SCH ×2 (09:39→20:52)
[2018-07-17] MEDS: Amoxicillin/Clavulanate TAB* 500 MG PO SCH ×2 (13:16→20:51)
--- NOTE | 2018-07-17 16:30 | PN ---
Subjective Date of Service: 07/17/18 Interval History: Pt seen and examined. Meds and labs reviewed. CC: Back pain and weakness ROS: Denied OJEDA/dizziness, F/C, N/V, CP, SOB, increased cough, sputum production , abd pain, diarrhea, constipation, dysuria, myalgias, arthralgias, throat pain , and new skin lesions. The rest of the 14 point ROS are unremarkable. PHYSICAL EXAM: GEN APPEARANCE: Awake, not in acute distress HEENT: NC/AT, PERRLA, moist oral mucosa, (-) throat erythema NECK: Soft, supple, (-) cervical LAD, (-)JVD HEART: S1S2 WNL, RRR, No MRG CHEST: CTA, BL, GAE, No W/R/R ABD: Soft, ND/NT, NABS 4x Q EXT: No C/C/E SKIN: Warm to touch PSYCH: No active psychosis, hallucinations, depression, SI/HI Objective Active Medications: Acetaminophen (Tylenol Tab*) 650 mg PO Q4H PRN PRN Reason: FEVER/PAIN Last Admin: 07/16/18 05:36 Dose: 650 mg Acetaminophen (Tylenol Tab*) 975 mg PO BID [facility] Last Admin: 07/17/18 08:47 Dose: 975 mg Acyclovir (Zovirax Cap*) 200 mg PO DAILY [facility] Last Admin: 07/17/18 08:47 Dose: 200 mg Albuterol (Ventolin Hfa Inhaler*) 2 puff INH Q4H PRN PRN Reason: SOB/WHEEZING Amoxicillin/Clavulanate Potassium (Augmentin Tab*) 500 mg PO BID [facility] Last Admin: 07/17/18 13:16 Dose: 500 mg Aspirin (Aspirin 81 Mg Chew Tab*) 81 mg PO DAILY [facility] Last Admin: 07/17/18 08:47 Dose: 81 mg Atorvastatin Calcium (Lipitor*) 80 mg PO DAILY [facility] Last Admin: 07/17/18 08:47 Dose: 80 mg Device (Tiotropium Inhaler Device*) 1 each INH .USE w/ SPIRIVA CAPS [facility] Dextrose (D50w Syringe 50 Ml*) 12.5 gm IV PUSH .FOR FS < 60 - SS PRN PRN Reason: FS < 60 Last Admin: 07/17/18 07:32 Dose: 12.5 gm Docusate Sodium (Colace Cap*) 100 mg PO BID PRN PRN Reason: CONSTIPATION Fluticasone Propionate (Flonase Nasal [place] 50mcg*) 2 spray BOTH NARES DAILY [facility] Last Admin: 07/17/18 08:40 Dose: 2 spray Gabapentin (Neurontin Cap(*)) 400 mg PO BID [facility] Heparin Sodium (Porcine) (Heparin Vial(*)) 5,000 units SUBCUT Q12H [facility] Last Admin: 07/17/18 05:09 Dose: 5,000 units Hydrocortisone (Hytone Cream 1%*) 1 applic TOPICAL BID [facility] Last Admin: 07/17/18 08:40 Dose: 1 applic Insulin Glargine (Lantus(*)) 30 units SUBCUT Q12H [facility] Last Admin: 07/17/18 09:39 Dose: 30 unit Insulin Human Lispro (Humalog*) 0 units SUBCUT AC [facility]; Protocol Last Admin: 07/17/18 13:15 Dose: 3 units Losartan Potassium (Cozaar Tab*) 50 mg PO DAILY [facility] Last Admin: 07/17/18 08:47 Dose: 50 mg Memantine (Namenda Xr Cap*) 14 mg PO DAILY [facility] Last Admin: 07/17/18 08:49 Dose: 14 mg Metoprolol Tartrate (Lopressor Tab*) 75 mg PO BID [facility] Last Admin: 07/17/18 08:44 Dose: 75 mg Montelukast Sodium (Singulair Tab*) 10 mg PO BEDTIME [facility] Last Admin: 07/16/18 20:14 Dose: 10 mg Ondansetron HCl (Zofran Inj*) 4 mg IV Q4H PRN PRN Reason: NAUSEA/VOMITING Oxybutynin Chloride (Ditropan Xl Tab*) 10 mg PO DAILY [facility] Last Admin: 07/17/18 08:46 Dose: 10 mg Oxycodone/Acetaminophen (Percocet 5/325 Tab*) 1 tab PO Q4H PRN PRN Reason: PAIN Last Admin: 07/17/18 16:09 Dose: 1 tab Pantoprazole Sodium (Protonix Tab*) 40 mg PO DAILY [facility] Last Admin: 07/17/18 08:47 Dose: 40 mg Senna (Senokot Tab*) 1 tab PO BID PRN PRN Reason: CONSTIPATION Tiotropium [place] (Spiriva Cap.Inh*) 1 cap INH DAILY [facility] Last Admin: 07/17/18 08:14 Dose: 1 cap Torsemide (Demadex*) 60 mg PO DAILY [facility] Last Admin: 07/17/18 08:47 Dose: 60 mg Vital Signs - 8 hr 07/17/18 07/17/18 07/17/18 08:46 09:43 11:00 Temperature 98.3 F Pulse Rate 62 Respiratory 18 16 16 Rate Blood Pressure 138/49 (mmHg) O2 Sat by Pulse 99 Oximetry 07/17/18 07/17/18 07/17/18 11:37 12:17 15:40 Temperature 98.2 F Pulse Rate 66 Respiratory 16 16 16 Rate Blood Pressure 131/37 (mmHg) O2 Sat by Pulse 95 Oximetry 07/17/18 16:09 Temperature Pulse Rate Respiratory 18 Rate Blood Pressure (mmHg) O2 Sat by Pulse Oximetry Oxygen Devices in Use Now: Nasal Cannula Result Diagrams: 07/17/18 05:32 07/17/18 05:32 Microbiology and Other Data: Microbiology 07/15/18 01:30 Nasal Screen MRSA (PCR) - Final Nasal Mrsa Not Detected Assess/Plan/Problems-Billing Assessment: - Patient Problems (1) Diastolic CHF Current Visit: Yes Status: Acute Code(s): I50.30 - UNSPECIFIED DIASTOLIC ( CONGESTIVE) HEART FAILURE SNOMED Code(s): 638880440 Comment: -Received 2 doses IV furosemide with good diuresis. -Continue w/Torsemide 60 mg po daily -Continue consistent carbohydrate diet -Continue low Sodium diet to her regimen (2) Back pain Current Visit: Yes Status: Acute Code(s): M54.9 - DORSALGIA, UNSPECIFIED SNOMED Code(s): 445435734 Comment: -Continue current pain meds place pt on Gabapentin as ordered (3) Dementia Current Visit: Yes Status: Acute Code(s): F03.90 - UNSPECIFIED DEMENTIA WITHOUT BEHAVIORAL DISTURBANCE SNOMED Code(s): 74269419 Comment: Continue memantine, corrected to SNF dose. (4) DM w/o complication type II Current Visit: No Status: Chronic Code(s): E11.9 - TYPE 2 DIABETES MELLITUS WITHOUT COMPLICATIONS SNOMED Code(s): 779348207 Comment: -Decrease Lantus and D/C ISS; continue carb counts -Consistent carb diet (5) CAD (coronary artery disease) Current Visit: No Status: Chronic Code(s): I25.10 - ATHSCL HEART DISEASE OF [place] CORONARY ARTERY W/O ANG PCTRS SNOMED Code(s): 07797660 Comment: Continue aspirin. (6) Morbid obesity Current Visit: Yes Status: Acute Code(s): E66.01 - MORBID (SEVERE) OBESITY DUE TO EXCESS CALORIES SNOMED Code(s): 186274784 Comment: BMI 44.7. (7) Dermatitis Current Visit: Yes Status: Acute Code(s): L30.9 - DERMATITIS, UNSPECIFIED SNOMED Code(s): 817061383 Comment: Both lower legs, L > R. HC 1% cream BID ordered. (8) DVT prophylaxis Current Visit: No Status: Acute Code(s): ECA3011 - SNOMED Code(s): 558338404 Comment: -Will change to Heparin SQq12H Status and Disposition: -Pt a resident [facility] -Will await PT eval
[2018-07-17] MEDS: Gabapentin CAP(*) 400 MG PO SCH (20:50)
[2018-07-17] MEDS: Montelukast Sodium TAB* 10 MG PO SCH (20:51)
[2018-07-18] MEDS: Heparin VIAL(*) 5000 UNITS/ML VIAL (FIVE THOUSAND) SUBCUT SCH ×2 (05:25→18:16)
[2018-07-18] MEDS: Tiotropium CAP.INH* CAP.INH/18 MCG (USE ORDER SET !) INH SCH (08:12)
[2018-07-18] MEDS: Fluticasone NASAL SPRAY 50MCG* 16 gm SPRAY BTL BOTH NARES SCH (09:23)
[2018-07-18] MEDS: Metoprolol Tartrate TAB* 50 mg PO SCH ×2 (09:24→21:28)
[2018-07-18] MEDS: Acyclovir* 200 MG CAP PO SCH (09:24)
[2018-07-18] MEDS: Pantoprazole TAB * 40 MG TAB PO SCH (09:25)
[2018-07-18] MEDS: Atorvastatin* 80 MG TAB PO SCH (09:25)
[2018-07-18] MEDS: Amoxicillin/Clavulanate TAB* 500 MG PO SCH ×2 (09:25→21:29)
[2018-07-18] MEDS: Gabapentin CAP(*) 400 MG PO SCH ×2 (09:25→21:28)
[2018-07-18] MEDS: Oxybutynin XL TAB* 5 MG PO SCH (09:26)
[2018-07-18] MEDS: Aspirin 81 mg CHEW TAB* 81 MG TAB.CHEW PO SCH (09:26)
[2018-07-18] MEDS: Hydrocortisone 1% CREAM* 30 GM TUBE TOPICAL SCH ×2 (09:26→21:41)
[2018-07-18] MEDS: Acetaminophen TAB* 325 MG PO SCH ×2 (09:26→21:29)
[2018-07-18] MEDS: Torsemide TAB* 20 MG PO SCH (09:26)
[2018-07-18] MEDS: Losartan TAB* 25 MG PO SCH (09:26)
[2018-07-18] MEDS: MEMANTINE 14 MG PO SCH (09:27)
[2018-07-18] MEDS: Insulin LISPRO* 1 UNITS UNIT SUBCUT SCH ×3 (09:27→18:16)
[2018-07-18] MEDS: Insulin GLARGINE(*) 1 UNITS UNIT SUBCUT SCH ×2 (09:27→21:30)
[2018-07-18] MEDS: oxyCODONE/Acetamin 5/325 MG* TAB PO PRN (11:26)
--- NOTE | 2018-07-18 14:58 | PN ---
Subjective Date of Service: 07/18/18 Interval History: Patient states breathing is OK. Feels her breath is "stopping" her a times. Denies chest pain. [facility]. RT hip is painful for days, no trauma. Family History: Unchanged from Admission Social History: Unchanged from Admission Past Medical History: Unchanged from Admission Objective Active Medications: Acetaminophen (Tylenol Tab*) 650 mg PO Q4H PRN PRN Reason: FEVER/PAIN Last Admin: 07/16/18 05:36 Dose: 650 mg Acetaminophen (Tylenol Tab*) 975 mg PO BID [facility] Last Admin: 07/18/18 09:26 Dose: 975 mg Acyclovir (Zovirax Cap*) 200 mg PO DAILY [facility] Last Admin: 07/18/18 09:24 Dose: 200 mg Albuterol (Ventolin Hfa Inhaler*) 2 puff INH Q4H PRN PRN Reason: SOB/WHEEZING Amoxicillin/Clavulanate Potassium (Augmentin Tab*) 500 mg PO BID [facility] Last Admin: 07/18/18 09:25 Dose: 500 mg Aspirin (Aspirin 81 Mg Chew Tab*) 81 mg PO DAILY [facility] Last Admin: 07/18/18 09:26 Dose: 81 mg Atorvastatin Calcium (Lipitor*) 80 mg PO DAILY [facility] Last Admin: 07/18/18 09:25 Dose: 80 mg Device (Tiotropium Inhaler Device*) 1 each INH .USE w/ SPIRIVA CAPS [facility] Dextrose (D50w Syringe 50 Ml*) 12.5 gm IV PUSH .FOR FS < 60 - SS PRN PRN Reason: FS < 60 Last Admin: 07/17/18 07:32 Dose: 12.5 gm Docusate Sodium (Colace Cap*) 100 mg PO BID PRN PRN Reason: CONSTIPATION Fluticasone Propionate (Flonase Nasal [place] 50mcg*) 2 spray BOTH NARES DAILY [facility] Last Admin: 07/18/18 09:23 Dose: 2 spray Gabapentin (Neurontin Cap(*)) 400 mg PO BID [facility] Last Admin: 07/18/18 09:25 Dose: 400 mg Heparin Sodium (Porcine) (Heparin Vial(*)) 5,000 units SUBCUT Q12H [facility] Last Admin: 07/18/18 05:25 Dose: 5,000 units Hydrocortisone (Hytone Cream 1%*) 1 applic TOPICAL BID [facility] Last Admin: 07/18/18 09:26 Dose: 1 applic Insulin Glargine (Lantus(*)) 25 units SUBCUT Q12H [facility] Insulin Human Lispro (Humalog*) 0 units SUBCUT AC [facility]; Protocol Last Admin: 07/18/18 13:47 Dose: 2 units Losartan Potassium (Cozaar Tab*) 50 mg PO DAILY [facility] Last Admin: 07/18/18 09:26 Dose: 50 mg Memantine (Namenda Xr Cap*) 14 mg PO DAILY [facility] Last Admin: 07/18/18 09:27 Dose: 14 mg Metoprolol Tartrate (Lopressor Tab*) 75 mg PO BID [facility] Last Admin: 07/18/18 09:24 Dose: 75 mg Montelukast Sodium (Singulair Tab*) 10 mg PO BEDTIME [facility] Last Admin: 07/17/18 20:51 Dose: 10 mg Ondansetron HCl (Zofran Inj*) 4 mg IV Q4H PRN PRN Reason: NAUSEA/VOMITING Oxybutynin Chloride (Ditropan Xl Tab*) 10 mg PO DAILY [facility] Last Admin: 07/18/18 09:26 Dose: 10 mg Oxycodone/Acetaminophen (Percocet 5/325 Tab*) 1 tab PO Q4H PRN PRN Reason: PAIN Last Admin: 07/18/18 11:26 Dose: 1 tab Pantoprazole Sodium (Protonix Tab*) 40 mg PO DAILY [facility] Last Admin: 07/18/18 09:25 Dose: 40 mg Senna (Senokot Tab*) 1 tab PO BID PRN PRN Reason: CONSTIPATION Tiotropium [place] (Spiriva Cap.Inh*) 1 cap INH DAILY [facility] Last Admin: 07/18/18 08:12 Dose: 1 cap Torsemide (Demadex*) 60 mg PO DAILY [facility] Last Admin: 07/18/18 09:26 Dose: 60 mg Vital Signs - 8 hr 07/18/18 07/18/18 07/18/18 08:00 08:10 08:14 Temperature 36.8 C Pulse Rate 65 65 Respiratory 16 20 20 Rate Blood Pressure 144/42 (mmHg) O2 Sat by Pulse 97 97 96 Oximetry 07/18/18 07/18/18 07/18/18 09:25 11:26 12:02 Temperature 36.4 C Pulse Rate 61 Respiratory 20 18 16 Rate Blood Pressure 136/42 (mmHg) O2 Sat by Pulse 100 Oximetry 07/18/18 12:56 Temperature Pulse Rate Respiratory 14 Rate Blood Pressure (mmHg) O2 Sat by Pulse Oximetry Oxygen Devices in Use Now: None Appearance: alert, no distress Eyes: No Scleral Icterus Ears/Nose/Mouth/Throat: Clear Oropharnyx Neck: NL Appearance and Movements; NL JVP Respiratory: Symmetrical Chest Expansion and Respiratory Effort, Clear to Auscultation Cardiovascular: NL Sounds; No Murmurs; No JVD Lymphatic: No Cervical Adenopathy Extremities: - - 2+ pitting edema bilat LE, tender up to knee; RT hip ROM normal flexion, ext rotation, w/o pain Neurological: - - alert, cooperative Lines/Tubes/Other Access: Clean, Dry and Intact Peripheral IV Nutrition: Taking PO's Result Diagrams: 07/17/18 05:32 07/17/18 05:32 Diagnostic Imaging: C-spine CT: arthritis, no fracture EKG Data: Echo 07/15 EF in 60% range, no severe , MR Assess/Plan/Problems-Billing Assessment: 77 year old woman admitted w acute con chronic exacerbation of diastolic CHF - Patient Problems (1) Diastolic CHF Current Visit: Yes Status: Acute Priority: High Code(s): I50.30 - UNSPECIFIED DIASTOLIC (CONGESTIVE) HEART FAILURE SNOMED Code(s): 261587687 Comment: -weight is down, continue daily weight -Continue w/Torsemide 60 mg po daily -Continue low Sodium diet to her regimen (2) DM w/o complication type II Current Visit: No Status: Chronic Priority: Medium Code(s): E11.9 - TYPE 2 DIABETES MELLITUS WITHOUT COMPLICATIONS SNOMED Code(s): 671016855 Comment: -Had hypoglycemic episode this morning -Decrease Lantus and D/C ISS; continue carb counts -Consistent carb diet (3) Right hip pain Current Visit: Yes Status: Acute Priority: Medium Code(s): M25.551 - PAIN IN RIGHT HIP SNOMED Code(s): 06116964 Comment: - No injury, no skin findings, may be OA RT hip. - X-ray ordered Status and Disposition: -Pt a resident of [facility] -Will await PT eval
[2018-07-18] MEDS: Montelukast Sodium TAB* 10 MG PO SCH (21:30)
[2018-07-19] MEDS: Acetaminophen TAB* 325 MG PO PRN (03:46)
[2018-07-19] MEDS: Heparin VIAL(*) 5000 UNITS/ML VIAL (FIVE THOUSAND) SUBCUT SCH ×2 (05:48→17:55)
[2018-07-19 07:04] LABS: BUN/Creatinine Ratio 33.7 (8-20); Calcium 8.8 mg/dL (8.6-10.3); EGFR African American 36.2 (>60); EGFR Non-African American 29.9 (>60); Potassium 4.5 mmol/L (3.5-5.0)
[2018-07-19] MEDS: Tiotropium CAP.INH* CAP.INH/18 MCG (USE ORDER SET !) INH SCH (07:52)
[2018-07-19] MEDS: Insulin LISPRO* 1 UNITS UNIT SUBCUT SCH ×3 (09:18→17:55)
[2018-07-19] MEDS: Hydrocortisone 1% CREAM* 30 GM TUBE TOPICAL SCH ×2 (09:18→22:31)
[2018-07-19] MEDS: Acetaminophen TAB* 325 MG PO SCH ×2 (09:18→22:30)
[2018-07-19] MEDS: Insulin GLARGINE(*) 1 UNITS UNIT SUBCUT SCH ×2 (09:18→22:31)
[2018-07-19] MEDS: Acyclovir* 200 MG CAP PO SCH (09:19)
[2018-07-19] MEDS: Fluticasone NASAL SPRAY 50MCG* 16 gm SPRAY BTL BOTH NARES SCH (09:19)
[2018-07-19] MEDS: MEMANTINE 14 MG PO SCH (09:19)
[2018-07-19] MEDS: Aspirin 81 mg CHEW TAB* 81 MG TAB.CHEW PO SCH (09:19)
[2018-07-19] MEDS: Losartan TAB* 25 MG PO SCH (09:19)
[2018-07-19] MEDS: Gabapentin CAP(*) 400 MG PO SCH ×2 (09:20→22:30)
[2018-07-19] MEDS: Torsemide TAB* 20 MG PO SCH (09:20)
[2018-07-19] MEDS: Atorvastatin* 80 MG TAB PO SCH (09:20)
[2018-07-19] MEDS: Oxybutynin XL TAB* 5 MG PO SCH (09:20)
[2018-07-19] MEDS: Metoprolol Tartrate TAB* 50 mg PO SCH ×2 (09:20→22:29)
[2018-07-19] MEDS: Amoxicillin/Clavulanate TAB* 500 MG PO SCH ×2 (09:20→22:29)
[2018-07-19] MEDS: Pantoprazole TAB * 40 MG TAB PO SCH (09:21)
--- NOTE | 2018-07-19 13:26 | PN ---
Subjective Date of Service: 07/19/18 Interval History: Patient feels OK, a bit stronger today. She has some dyspnea when she has food in her mouth. Denies orthopnea. RT hip still painful. She is non-ambulatory at SNF. Family History: Unchanged from Admission Social History: Unchanged from Admission Past Medical History: Unchanged from Admission Objective Active Medications: Acetaminophen (Tylenol Tab*) 650 mg PO Q4H PRN PRN Reason: FEVER/PAIN Last Admin: 07/19/18 03:46 Dose: 650 mg Acetaminophen (Tylenol Tab*) 975 mg PO BID [facility] Last Admin: 07/19/18 09:18 Dose: 975 mg Acyclovir (Zovirax Cap*) 200 mg PO DAILY [facility] Last Admin: 07/19/18 09:19 Dose: 200 mg Albuterol (Ventolin Hfa Inhaler*) 2 puff INH Q4H PRN PRN Reason: SOB/WHEEZING Amoxicillin/Clavulanate Potassium (Augmentin Tab*) 500 mg PO BID [facility] Last Admin: 07/19/18 09:20 Dose: 500 mg Aspirin (Aspirin 81 Mg Chew Tab*) 81 mg PO DAILY [facility] Last Admin: 07/19/18 09:19 Dose: 81 mg Atorvastatin Calcium (Lipitor*) 80 mg PO DAILY [facility] Last Admin: 07/19/18 09:20 Dose: 80 mg Device (Tiotropium Inhaler Device*) 1 each INH .USE w/ SPIRIVA CAPS [facility] Dextrose (D50w Syringe 50 Ml*) 12.5 gm IV PUSH .FOR FS < 60 - SS PRN PRN Reason: FS < 60 Last Admin: 07/17/18 07:32 Dose: 12.5 gm Docusate Sodium (Colace Cap*) 100 mg PO BID PRN PRN Reason: CONSTIPATION Fluticasone Propionate (Flonase Nasal [place] 50mcg*) 2 spray BOTH NARES DAILY [facility] Last Admin: 07/19/18 09:19 Dose: 2 spray Gabapentin (Neurontin Cap(*)) 400 mg PO BID [facility] Last Admin: 07/19/18 09:20 Dose: 400 mg Heparin Sodium (Porcine) (Heparin Vial(*)) 5,000 units SUBCUT Q12H [facility] Last Admin: 07/19/18 05:48 Dose: 5,000 units Hydrocortisone (Hytone Cream 1%*) 1 applic TOPICAL BID [facility] Last Admin: 07/19/18 09:18 Dose: 1 applic Insulin Glargine (Lantus(*)) 25 units SUBCUT Q12H [facility] Last Admin: 07/19/18 09:18 Dose: 25 units Insulin Human Lispro (Humalog*) 0 units SUBCUT AC [facility]; Protocol Last Admin: 07/19/18 09:18 Dose: 3 units Losartan Potassium (Cozaar Tab*) 50 mg PO DAILY [facility] Last Admin: 07/19/18 09:19 Dose: 50 mg Memantine (Namenda Xr Cap*) 14 mg PO DAILY [facility] Last Admin: 07/19/18 09:19 Dose: 14 mg Metoprolol Tartrate (Lopressor Tab*) 75 mg PO BID [facility] Last Admin: 07/19/18 09:20 Dose: 75 mg Montelukast Sodium (Singulair Tab*) 10 mg PO BEDTIME [facility] Last Admin: 07/18/18 21:30 Dose: 10 mg Ondansetron HCl (Zofran Inj*) 4 mg IV Q4H PRN PRN Reason: NAUSEA/VOMITING Oxybutynin Chloride (Ditropan Xl Tab*) 10 mg PO DAILY [facility] Last Admin: 07/19/18 09:20 Dose: 10 mg Oxycodone/Acetaminophen (Percocet 5/325 Tab*) 1 tab PO Q4H PRN PRN Reason: PAIN Last Admin: 07/18/18 11:26 Dose: 1 tab Pantoprazole Sodium (Protonix Tab*) 40 mg PO DAILY [facility] Last Admin: 07/19/18 09:21 Dose: 40 mg Senna (Senokot Tab*) 1 tab PO BID PRN PRN Reason: CONSTIPATION Tiotropium [place] (Spiriva Cap.Inh*) 1 cap INH DAILY [facility] Last Admin: 07/19/18 07:52 Dose: 1 cap Torsemide (Demadex*) 60 mg PO DAILY [facility] Last Admin: 07/19/18 09:20 Dose: 60 mg Vital Signs - 8 hr 07/19/18 07/19/18 07/19/18 07:28 07:59 09:20 Temperature 36.3 C Pulse Rate 66 Respiratory 16 20 18 Rate Blood Pressure 143/36 (mmHg) O2 Sat by Pulse 98 100 Oximetry 07/19/18 11:32 Temperature 36.9 C Pulse Rate 62 Respiratory 20 Rate Blood Pressure 117/45 (mmHg) O2 Sat by Pulse 100 Oximetry Oxygen Devices in Use Now: Nasal Cannula Appearance: alert, eating lunch Eyes: No Scleral Icterus Ears/Nose/Mouth/Throat: NL Teeth, Lips, Gums Neck: NL Appearance and Movements; NL JVP Respiratory: Symmetrical Chest Expansion and Respiratory Effort, Clear to Auscultation Cardiovascular: NL Sounds; No Murmurs; No JVD Abdominal: NL Sounds; No Tenderness; No Distention Extremities: - - 2+ edema bilat LE Neurological: - - alert, cooperative Lines/Tubes/Other Access: Clean, Dry and Intact Peripheral IV Nutrition: Taking PO's Result Diagrams: 07/17/18 05:32 07/19/18 06:34 Diagnostic Imaging: RT hip film: mild OA EKG Data: Echo 07/15 EF in 60% range, no severe , MR Assess/Plan/Problems-Billing Assessment: 77 year old woman admitted w acute con chronic exacerbation of diastolic CHF - Patient Problems (1) Diastolic CHF Current Visit: Yes Status: Acute Priority: High Code(s): I50.30 - UNSPECIFIED DIASTOLIC (CONGESTIVE) HEART FAILURE SNOMED Code(s): 872943952 Comment: -weight is stable, I/O shows good output -Continue w/Torsemide 60 mg po daily -creatinine elevated in tolerable level (2) DM w/o complication type II Current Visit: No Status: Chronic Priority: Medium Code(s): E11.9 - TYPE 2 DIABETES MELLITUS WITHOUT COMPLICATIONS SNOMED Code(s): 247005876 Comment: -now sugars are >200, Lantus increased -not on sliding scale -Consistent carb diet (3) Right hip pain Current Visit: Yes Status: Acute Priority: Medium Code(s): M25.551 - PAIN IN RIGHT HIP SNOMED Code(s): 39639615 Comment: - mild OA RT hip. Status and Disposition: -discharge tomorrow, SNF could not take patient back today
[2018-07-19] MEDS ORDERED: Furosemide IV* 10 MG/ML 2 ML VIAL (20 MG) IV STA (22:27)
[2018-07-19] MEDS: Montelukast Sodium TAB* 10 MG PO SCH (22:29)
[2018-07-20] MEDS: Heparin VIAL(*) 5000 UNITS/ML VIAL (FIVE THOUSAND) SUBCUT SCH (05:21)
[2018-07-20 06:33] LABS: BUN/Creatinine Ratio 32.9 (8-20); EGFR African American 34.5 (>60); EGFR Non-African American 28.5 (>60); Potassium 4.4 mmol/L (3.5-5.0)
[2018-07-20] MEDS: Tiotropium CAP.INH* CAP.INH/18 MCG (USE ORDER SET !) INH SCH (07:53)
[2018-07-20] MEDS: Insulin LISPRO* 1 UNITS UNIT SUBCUT SCH ×2 (08:58→13:20)
[2018-07-20] MEDS: Insulin GLARGINE(*) 1 UNITS UNIT SUBCUT SCH (08:59)
[2018-07-20] MEDS: MEMANTINE 14 MG PO SCH (09:01)
[2018-07-20] MEDS: Aspirin 81 mg CHEW TAB* 81 MG TAB.CHEW PO SCH (09:01)
[2018-07-20] MEDS: Torsemide TAB* 20 MG PO SCH (09:02)
[2018-07-20] MEDS: Losartan TAB* 25 MG PO SCH (09:03)
[2018-07-20] MEDS: Pantoprazole TAB * 40 MG TAB PO SCH (09:03)
[2018-07-20] MEDS: Atorvastatin* 80 MG TAB PO SCH (09:03)
[2018-07-20] MEDS: Gabapentin CAP(*) 400 MG PO SCH (09:04)
[2018-07-20] MEDS: Acetaminophen TAB* 325 MG PO SCH (09:05)
[2018-07-20] MEDS: Acyclovir* 200 MG CAP PO SCH (09:06)
[2018-07-20] MEDS: Amoxicillin/Clavulanate TAB* 500 MG PO SCH (09:06)
[2018-07-20] MEDS: Metoprolol Tartrate TAB* 50 mg PO SCH (09:07)
[2018-07-20] MEDS: Oxybutynin XL TAB* 5 MG PO SCH (09:07)
[2018-07-20] MEDS: Hydrocortisone 1% CREAM* 30 GM TUBE TOPICAL SCH (09:09)
[2018-07-20] MEDS: Fluticasone NASAL SPRAY 50MCG* 16 gm SPRAY BTL BOTH NARES SCH (09:27)
[2018-07-20 11:09] VITALS: BP 118/92
[2018-07-20] MEDS ORDERED: Insulin LISPRO* 1 UNITS UNIT SUBCUT SCH (11:30)
--- NOTE | 2018-07-20 11:53 | TRS ---
Dr. Valverde at [facility]. TRANSFER SUMMARY: DATE OF ADMISSION: 07/15/18 DATE OF DISCHARGE: 07/20/18 PRIMARY DIAGNOSIS: Diastolic congestive heart failure, acute on chronic. SECONDARY DIAGNOSES: 1. Urinary tract infection with extended spectrum beta-lactamases, Escherichia coli. 2. Morbid obesity. 3. Hypertension. 4. Chronic kidney disease. 5. Obstructive sleep apnea, not on CPAP. 6. Type 2 diabetes with hyperglycemia. 7. Coronary artery disease. 8. Hyperlipidemia. 9. Chronic obstructive pulmonary disease. 10. Gastroesophageal reflux disease. 11. Recurrent urinary tract infections on suppression. 12. History of herpes infection. MEDIATIONS ON DISCHARGE: 1. Acyclovir 200 mg p.o. daily. 2. Lipitor 80 mg p.o. q.h.s. 3. Budesonide/formoterol 80/4.5 one inhalation b.i.d. 4. Fexofenadine 60 mg p.o. daily. 5. Fluticasone nasal spray intranasal 1 spray each nostril daily. 6. Glycerin suppository daily p.r.n. constipation. 7. Losartan 50 mg p.o. daily. 8. Nitroglycerin 0.4 mg sublingual q.5 minutes p.r.n. chest pain. 9. Omeprazole 20 mg p.o. daily. 10. Oxybutynin 10 mg p.o. daily. 11. Acetaminophen 975 mg p.o. b.i.d. 12. Albuterol MDI 2 puffs inhaled q.4 hours p.r.n. wheezing. 13. Amoxicillin clavulanate acid 500 mg 1 tab p.o. b.i.d. for 6 days. 14. Aspirin 81 mg p.o. daily. 15. Colace 100 mg p.o. b.i.d. 16. Gabapentin 400 mg p.o. b.i.d. 17. Hydrocortisone topical to the area of dermatitis daily p.r.n. 18. Insulin glargine 30 units subcutaneous b.i.d. 19. Insulin Humalog would be 8 units subcutaneous before each meal plus 1 unit for every 50 points of blood sugar on fingerstick above 150. 20. Namenda XR 14 mg p.o. daily. 21. Zaroxolyn 5 mg p.o. q.a.m. 30 minutes before torsemide for 1 week then stop. 22. Metoprolol 100 mg p.o. b.i.d. 23. Montelukast 10 mg p.o. q.h.s. 24. Nitrofurantoin 50 mg p.o. daily. 25. Oxycodone/acetaminophen 5/325 one tab p.o. q.4 hours p.r.n. pain. 26. Senna 1 tab p.o. b.i.d. p.r.n. constipation. 27. Spiriva 1 inhalation daily. 30. Torsemide 40 mg p.o. daily. HOSPITAL COURSE: This 77-year-old woman presented from long-term with dyspnea and worsened peripheral edema. She has reduced mobility and previously walked with a walker and now during this hospital stay, she has been able to get out of bed to chair with 2 assist or a [place]. The patient was assessed to have diastolic congestive heart failure. Echocardiogram performed on 07/15/18 shows ejection fraction of 65% with some dynamic left ventricular outflow obstruction. No significant valvular disease. The patient was diuresed with intravenous and oral furosemide and torsemide. Her intake and output showed a negative 500 to 1500 mL per day and her weight came down from 115 to 113 kg. The patient had improved breathing, but her ability to describe her breathing and other complaints was limited by dementia. Her diabetes was difficult to control. She had a hypoglycemic episode on the that led to stopping her mealtime insulin. However, after that, her sugars climbed to 250 and 300 in the last 2 days despite increased doses of Lantus. She should be reinstituted on mealtime insulin as above with adjustments based on her fingersticks and further adjustments at the long-term. With treatment of her acute on chronic heart failure with diuretics, her creatinine slowly climbed from admission creatinine 1.25 up to discharge creatinine 1.73. The patient has chronic kidney disease and this creatinine is up to 2 should be tolerated. I am recommending a BMP repeat in 1 week and recommending giving a dose of metolazone prior to the Demadex for 1 week and then reassessing. Patient on day of discharge was on oxygen 2 L nasal cannula but we were able to stop oxygen and found room air saturation was 92%. We advised treatment for sleep apnea, but she has not tolerated CPAP in the past. She also had during the hospital stay urine culture they grew ESBL E. coli that was sensitive to Augmentin. Despite her allergy to PENICILLIN, this medication was started and she did not have any new rashes or other complaints. She should continue this for 6 more days and stop. She is also on chronic nitrofurantoin to prevent UTIs. DISPOSITION: [facility]. ACTIVITY: Should be out of [id number] with [place] or 2 assist. DIET: Should be low sodium, cardiac. ADVANCE DIRECTIVES: Her code status is DNR/DNI. In the past, she had do not transfer to hospital on her MOLST form, but she was transferred to the hospital and this should be discussed with her family again at the long-term. [id number]/CPS #: [id number] MARTITA
[2018-07-20] MEDS ORDERED: Insulin LISPRO* 1 UNITS UNIT SUBCUT ONE (13:19)
[2018-07-20] MEDS ORDERED: Metoprolol Tartrate TAB* 100 MG TAB PO SCH (21:00)
[2018-07-21] MEDS ORDERED: Metolazone TAB* 5 MG PO SCH (08:30)
[2018-07-21] MEDS ORDERED: Torsemide TAB* 20 MG PO SCH (09:00)
== END 2018-07-20 14:27 | DRG 291 ==
LOC: ED 21:45 → MEDTELE 07-15 01:18 → UNDODISIN 07-20 13:14
PROVIDERS: ADMIT Pediatrics; ATTEND Internal Medicine
DX: I13.0 Hypertensive heart and chronic kidney disease with heart failure and stage 1 through stage 4 chronic kidney disease, or unspecified chronic kidney disease (principal); I50.33 Acute on chronic diastolic (congestive) heart failure; N39.0 Urinary tract infection, site not specified; Z68.42 Body mass index [BMI] 45.0-49.9, adult; J44.9 Chronic obstructive pulmonary disease, unspecified; E11.22 Type 2 diabetes mellitus with diabetic chronic kidney disease; E11.65 Type 2 diabetes mellitus with hyperglycemia; E66.01 Morbid (severe) obesity due to excess calories; D64.9 Anemia, unspecified; F03.90 Unspecified dementia, unspecified severity, without behavioral disturbance, psychotic disturbance, mood disturbance, and anxiety; G47.33 Obstructive sleep apnea (adult) (pediatric); N18.9 Chronic kidney disease, unspecified; B96.20 Unspecified Escherichia coli [E. coli] as the cause of diseases classified elsewhere; I25.10 Atherosclerotic heart disease of native coronary artery without angina pectoris; E78.5 Hyperlipidemia, unspecified; K21.9 Gastro-esophageal reflux disease without esophagitis; M25.551 Pain in right hip; M54.9 Dorsalgia, unspecified; Z66 Do not resuscitate; L30.9 Dermatitis, unspecified; Z99.89 Dependence on other enabling machines and devices; Z79.1 Long term (current) use of non-steroidal anti-inflammatories (NSAID); Z79.811 Long term (current) use of aromatase inhibitors; Z79.4 Long term (current) use of insulin; Z91.010 Allergy to peanuts; Z79.51 Long term (current) use of inhaled steroids; Z79.899 Other long term (current) drug therapy; Z88.2 Allergy status to sulfonamides
CPT/HCPCS: 36415; 71045; 72125; 80048; 80053; 80061; 81003; 81015; 82728; 83036; 83540; 83550; 83605; 83735; 83880; 84100; 84484; 85025; 85027; 85610; 85730; 86140; 87040; 87077; 87086; 87186; 87641; 93005; 93306; 93970; 94640; 99284; A9270-GY; C8929; G8978-GP-CK; G8979-GP-CI; J1644; J1940; J2270; J2543; J3370

== ENCOUNTER 2018-07-27 13:30 | Emergency (ER) | payer MEDICARE ==
[2018-07-27] MEDS ORDERED: NS 0.9% 1000 ML** 1,000 ML IV ONE ×2 (13:38→16:07)
--- NOTE | 2018-07-27 13:41 | ED ---
HPI Diabetic - HPI Summary HPI Summary: This pt is a 77 y/o female presenting to [facility] via EMS from [facility] for elevated glucose level today. Pt is a type 2 diabetic. EMS reports is new to [facility] since June 2018 and blood glucose have been running in the 500's for approx. 4 days. Pt has been feeling generalized weakness and run down, per EMS. Pt notes she has polydipsia and polyphagia. She denies fever , chest pain, SOB, nausea, vomiting, diarrhea, headache. Pt's blood glucose today is 548, per EMS. Pt has a MOLST form. - History Of Current Complaint Time Seen by Provider: 07/27/18 13:34 Hx Obtained From: Patient Hx Last Menstrual Period: n/a Onset/Duration: Lasting Days, Still Present Timing: Days Severity Currently: Moderate Character: Other - weakness generalized Aggravating: Nothing Alleviating: Nothing Associated Signs & Symptoms: Cough, Polydipsia, Polyphagia Related History: DM II, Insulin Requiring - Allergies/Home Medications Allergies/Adverse Reactions: Allergies Allergy/AdvReac Type Severity Reaction Status Date / Time Penicillins Allergy Unknown Verified 07/14/18 22:08 Reaction Details Sulfa (Sulfonamide Allergy Unknown Verified 07/14/18 22:07 Antibiotics) Reaction Details Home Medications: Home Medications Acetaminophen TAB* [Tylenol TAB*] 650 mg PO Q4HR PRN 07/27/18 [History Confirmed 07/27/18] Albuterol Sulfate [Proventil Hfa] 2 puff INH Q4HR PRN 07/27/18 [History Confirmed 07/27/18] Fexofenadine (NF) [Tana (NF)] 60 mg PO DAILY 07/27/18 [History Confirmed ] Fluticasone NASAL SPRAY 50MCG* [Flonase NASAL SPRAY 50MCG*] 1 spray BOTH NARES BID 07/27/18 [History Confirmed 07/27/18] Furosemide TAB* [Lasix TAB*] 40 mg PO DAILY 07/27/18 [History Confirmed 07/27/18 ] Glucagon,Human Recombinant [Glucagon Emergency Kit] 1 mg IM ONCE PRN 07/27/18 [ History Confirmed 07/27/18] Insulin ASPART (NF) [Novolog (NF)] 0 - 14 unit SUBCUT AC 07/27/18 [History Confirmed 07/27/18] Insulin GLARGINE(*) [Lantus(*)] 40 units SUBCUT BID 07/27/18 [History Confirmed 07/27/18] Magnesium Hydroxide LIQ* [Milk of Magnesia LIQ*] 30 ml PO Q72HR PRN 07/27/18 [ History Confirmed 07/27/18] Metolazone TAB* [Zaroxolyn TAB*] 5 mg PO DAILY 07/27/18 [History Confirmed 07/27] Multivitamins/Minerals TAB* [Theragran/minerals TAB*] 1 tab PO DAILY 07/27/18 [ History Confirmed 07/27/18] Omeprazole CAP (NF) [Prilosec CAP* 20 MG] 20 mg PO DAILY 07/27/18 [History Confirmed 07/27/18] Oxybutynin Chloride [Oxybutynin Chloride ER] 10 mg PO DAILY 07/27/18 [History Confirmed 07/27/18] guaiFENesin LIQ* [Robitussin*] 10 ml PO Q4H PRN 07/27/18 [History Confirmed ] PMH/Surg Hx/FS Hx/Imm Hx Endocrine/Hematology History: Reports: Hx Diabetes - insulin, Hx Anemia Denies: Hx Anticoagulant Therapy, Hx Blood Disorders, Hx Blood Transfusions, Hx Bone Marrow Disease, Hx Systemic Lupus Erythematosus, Hx Sickle Cell Disease , Hx Thyroid Disease, Hx Unexplained Bleeding Cardiovascular History: Reports: Hx Coronary Artery Disease, Hx Embolism - PAtient states in her corotid artery, Hx Hypercholesterolemia, Hx Hypertension, Hx Syncope - 2 weeks ago in shower Denies: Hx Aneurysm, Hx Angina, Hx Angioplasty, Hx Auto Implanted Cardiovert Defib, Hx Cardiac Arrest, Hx Cardiomegaly, Hx Congenital Heart Disease, Hx Congestive Heart Failure, Hx Deep Vein Thrombosis, Hx Hypotension, Hx Pacemaker/ ICD, Hx Peripheral Vascular Disease, Hx Rheumatic Fever, Hx Valvular Heart Disease Respiratory History: Reports: Hx Chronic Obstructive Pulmonary Disease (COPD), Hx Pneumonia, Hx Seasonal Allergies, Hx Sleep Apnea Denies: Hx Asthma, Hx Chronic Bronchitis, Hx Cystic Fibrosis, Hx Lung Cancer , Hx Pleural Effusion, Hx Pulmonary Edema, Hx Pulmonary Embolism GI History: Reports: Hx Gall Bladder Disease, Hx Gastroesophageal Reflux Disease - TUMS Denies: Hx Cirrhosis, Hx Crohn's Disease, Hx Diverticulosis, Hx Gastrointestinal Bleed, Hx Hiatal Hernia, Hx Irritable Bowel, Hx Jaundice, Hx Obstructive Bowel, Hx Ileostomy, Hx Pyloric Stenosis, Hx Ulcer History: Reports: Other Problems/Disorders - some kind of kidney problem when young, hospitalized. Denies: Hx Acute Renal Failure, Hx Benign Prostatic Hyperplasia, Hx Chronic Renal Failure, Hx Dialysis, Hx Kidney Infection - chronic UTI, Hx Kidney Stones Musculoskeletal History: Reports: Hx Arthritis, Hx Bursitis, Hx Gout - Last year , Hx Orthopedic Injury - Fell on knee 2 weeks ago. Has been to physical therapy Denies: Hx Back Problems, Hx Congenital Bone Abnormalities, Hx Fibromyalgia, Hx Osteoporosis, Hx Scoliosis, Hx Tendonitis Sensory History: Reports: Hx Cataracts, Hx Contacts or Glasses, Hx Glaucoma, Hx Macular Degeneration, Hx Vision Problem Denies: Hx Eye Injury, Hx Eye Prosthesis, Hx Legally Blind, Hx Deafness, Hx Hearing Aid, Hx Hearing Problem Opthamlomology History: Reports: Hx Cataracts, Hx Contacts or Glasses, Hx Glaucoma, Hx Macular Degeneration, Hx Vision Problem Denies: Hx Eye Injury, Hx Eye Prosthesis, Hx Legally Blind Neurological History: Reports: Hx Dementia, Hx Headaches, Hx Transient Ischemic Attacks (TIA) Denies: Hx Developmental Delay, Hx Migraine, Hx Nerve Disease, Hx Seizures, Hx Spinal Cord Injury Psychiatric History: Reports: Hx Anxiety - "sometimes" Denies: Hx Attention Deficit Hyperactivity Disorder, Hx Eating Disorder, Hx Depression, Hx Panic Disorder, Hx Post Traumatic Stress Disorder, Hx Inpatient Treatment, Hx Community Mental Health Tx, Hx Schizophrenia, Hx Bipolar Disorder , Hx Suicide Attempt, Hx of Violent Episodes Against Others, Hx Substance Abuse - Cancer History Hx Chemotherapy: No Hx Radiation Therapy: No Hx Palliative Cancer Treatment: No - Surgical History Surgery Procedure, Year, and Place: BILAT SHOULDER ROTATOR CUFF REPAIRS; BILAT CARPAL TUNNEL, LIPOTRIPSY OF RENAL CALCULI, GALL BLADDER REMOVED. APPENDECTOMY, Carotid stents b/l Hx Anesthesia Reactions: No - Immunization History Date of Tetanus Vaccine: PT STATES UNSURE Date of Influenza Vaccine: NONE Infectious Disease History: Denies: Hx Clostridium Difficile, Hx Hepatitis, Hx Human Immunodeficiency Virus (HIV), Hx of Known/Suspected MRSA, Hx Shingles, Hx Tuberculosis, Hx Known/ Suspected VRE, Hx Known/Suspected VRSA, History Other Infectious Disease - Family History Known Family History: Positive: Hypertension - Social History Alcohol Use: None Hx Substance Use: No Substance Use Type: Reports: None Hx Tobacco Use: No Smoking Status (MU): Never Smoked Tobacco Review of Systems Constitutional: Other - POS: polydipsia, polyphagia Negative: Fever Negative: Chest Pain Positive: Cough. Negative: Shortness Of Breath Negative: Vomiting, Diarrhea, Nausea Positive: Weakness - generalized. Negative: Headache All Other Systems Reviewed And Are Negative: Yes Physical Exam - Summary Physical Exam Summary: VITAL SIGNS: Reviewed. GENERAL: Patient is a well-developed, elderly and obese female who is lying comfortable in the stretcher. Patient is not in any acute distress. HEAD AND FACE: No signs of trauma. No ecchymosis, hematomas or skull depressions. No sinus tenderness. EYES: PERRLA, EOMI x 2, No injected conjunctiva, no nystagmus. EARS: Hearing grossly intact. Ear canals and tympanic membranes are within normal limits. MOUTH: Oropharynx within normal limits. Oral mucosa is dry. NECK: Supple, trachea is midline, no adenopathy, no JVD, no carotid bruit, no c- spine tenderness, neck with full ROM. CHEST: Symmetric, no tenderness at palpation LUNGS: Lungs with bilateral crackles. CVS: Regular rate and rhythm, S1 and S2 present, no murmurs or gallops appreciated. ABDOMEN: Soft, non-tender. No signs of distention. No rebound, no guarding, and no masses palpated. Bowel sounds are normal. She has a chronic indwelling manuel catheter. EXTREMITIES: FROM in all major joints, no edema, no cyanosis or clubbing. NEURO: Alert and oriented x 3. No acute neurological deficits. Speech is normal and follows commands. SKIN: Dry and warm. Skin is dry with increased turgor. Triage Information Reviewed: Yes Vital Signs Reviewed: Yes Diagnostics - Laboratory Result Diagrams: 07/27/18 14:16 07/27/18 14:16 Lab Statement: Any lab studies that have been ordered have been reviewed, and results considered in the medical decision making process. - Radiology Chest XR Radiology Interpretation Completed By: Radiologist Summary of Radiographic Findings: IMPRESSION: Active cardiopulmonary disease is identified. Dr. Ahumada has reviewed this report. - EKG 14:04 Cardiac Rate: NL - at 66 bpm EKG Rhythm: Sinus Rhythm EKG Comparison: No Significant Change - similar to prior EKG on 07/14/18. Summary of EKG Findings: No ST elevations. Diabetic Course/Dx - Course Assessment/Plan: This patient is a 77-year-old female who presents to the emergency department via ambulance with a chief complaint of uncontrolled diabetes. The patient does not have any complaints. Test results without significant abnormality except for WBCs of 12.3, sodium of 131, BUN is 77, creatinine 1.86. Glucose is 363 and CRP is 13.1. Urinalysis is contaminated. Chest x-ray impression: no active cardiopulmonary disease identified. In the ED course the patient was given IV fluids for hydration and also she was given insulin for the hyperglycemia. The urinalysis seems to be contaminated therefore the patient was not given any antibiotics. After the patient was given IV fluids and insulin, the fingerstick now is 223. The patient is feeling better and she has no other complaints therefore the patient will be discharged back to the [facility]. I discussed all the findings and test results with the patient. Patient was instructed to return to the emergency room immediately if any of the symptoms return or worsens. Plan of care was discussed with the patient and understands and agrees. All questions were answered at patient satisfaction. There were no further complaints or concerns. Lung exam before discharge: CTA B/L. Good air exchange. No wheezing or crackles heard. CVS: S1 and S2 present. No murmurs appreciated. Patient is alert and oriented x 3. Patient is hemodynamically stable. Patient will be discharged home with follow up from her PCP in the next 2-3 days. - Diagnoses Differential Dx: Gestational Diabetes, Hyperglycemia, Hyperosmolar State, Hypoglycemia, New Onset Diabetes Provider Diagnoses: Hyperglycemia, Uncontrolled diabetes mellitus Discharge - Sign-Out/Discharge Documenting (check all that apply): Patient Departure - Discharge home Patient Received Moderate/Deep Sedation with Procedure: No - Discharge Plan Condition: Stable Disposition: HOME Patient Education Materials: Hypoglycemia in a Person with Diabetes (ED), Diabetic Hyperglycemia (ED) Referrals: [facility] [Outside] Additional Instructions: FOLLOW UP WITH YOUR PRIMARY CARE PROVIDER IN 2-3 DAYS. If you don't have one please follow up with [facility]. RETURN TO THE ED FOR ANY NEW OR WORSENING SYMPTOMS. - Billing Disposition and Condition Condition: STABLE Disposition: Home - Attestation Statements Document Initiated by Scribe: Yes Documenting Scribe: Yue No Provider For Whom Scribe is Documenting (Include Credential): Jim Ahumada MD Scribe Attestation: I, Yue No, scribed for Jim Ahumada MD on 07/27/18 at 1903. Scribe Documentation Reviewed: Yes Provider Attestation: The documentation as recorded by the scribe, Yue No accurately reflects the service I personally performed and the decisions made by me, Jim Ahumada MD Status of Scribe Document: Viewed
[2018-07-27 14:26] LABS: ABS Basophils 0.1 10^3/ul (0-0.2); ABS Eosinophils 0.5 10^3/ul (0-0.6); ABS Lymphocytes 1.5 10^3/ul (1.0-4.8); ABS Monocytes 0.6 10^3/ul (0-0.8); ABS Neutrophils 9.7 10^3/ul (1.5-7.7); ABS Nucleated RBC 0 10^3/ul; Eosinophil % 4.3 %; Hematocrit 38 % (33-41); Hemoglobin 12.5 g/dL (12.0-16.0); Mean Corpuscular HGB Conc 33 g/dL (31-36); Mean Corpuscular Hemoglobin 29 pg (27-31); Mean Corpuscular Volume 89 fL (80-97); Nucleated Red Blood Cells % 0; Platelet Count 352 10^3/uL (150-450); Red Blood Count 4.27 10^6 /uL (3.70-4.87); Red Cell Distribution Width 15 % (10.5-15); White Blood Count 12.3 10^3/uL (3.5-10.8)
[2018-07-27 14:43] LABS: Albumin 3.7 g/dL (3.2-5.2); Albumin/Globulin Ratio 0.9 (1-3); BUN/Creatinine Ratio 41.4 (8-20); C Reactive Protein 13.17 mg/L (<8.01); Calcium 9.7 mg/dL (8.6-10.3); EGFR African American 31.7 (>60); EGFR Non-African American 26.2 (>60); Potassium 4.9 mmol/L (3.5-5.0); Total Bilirubin 0.4 mg/dL (0.2-1.0); Total Protein 7.7 g/dL (6.4-8.9)
[2018-07-27] MEDS ORDERED: Insulin REGULAR(*) 1 UNITS UNIT IV PUSH ONE (14:58)
[2018-07-27 15:22] LABS: Urine Appearance Cloudy; Urine Bacteria 1+ (Absent); Urine Bilirubin Negative (Negative); Urine Blood 2+ (Negative); Urine Color Yellow; Urine Glucose Negative (Negative); Urine Ketones Negative (Negative); Urine Nitrite Negative (Negative); Urine Protein Negative (Negative); Urine Red Blood Cell 3+(>10/hpf) (Absent); Urine Specific Gravity 1.011 (1.010-1.030); Urine Squamous Epithelial Cell Present (Absent); Urine Transitional Epithelial Present (Absent); Urine Urobilinogen Negative (Negative); Urine White Blood Cell 3+(>20/hpf) (Absent)
[2018-07-27 19:36] VITALS: BP 140/80
== END 2018-07-27 19:28 | disposition home or self-care (01) ==
LOC: ED 13:30
DX: E11.65 Type 2 diabetes mellitus with hyperglycemia (principal); Z79.4 Long term (current) use of insulin; R53.1 Weakness; R63.1 Polydipsia; R63.2 Polyphagia; R05 Cough; I25.10 Atherosclerotic heart disease of native coronary artery without angina pectoris; I10 Essential (primary) hypertension; Z95.5 Presence of coronary angioplasty implant and graft; K21.9 Gastro-esophageal reflux disease without esophagitis; Z88.0 Allergy status to penicillin; Z88.2 Allergy status to sulfonamides
CPT/HCPCS: 36415; 71046; 80053; 81003; 81015; 82550; 82803; 83605; 85025; 86140; 87086; 87106; 93005; 96361; 96374; 99285

== ENCOUNTER 2018-10-26 12:30 | Emergency (ER) | payer MEDICARE ==
--- NOTE | 2018-10-26 14:02 | ED ---
Complex/Multi-Sys Presentation - HPI Summary HPI Summary: This pt is a 77 y/o female, accompanied by daughter and granddaughter, presenting to [facility] via EMS from [facility] for fluid retention and weight gain. Pt reports she has bilateral lower extremity swelling and her lower abdomen is pruritic. She notes she has a wound on her left heel that is tender. Per daughter, pt did not eat lunch today and did not get her insulin shot. Pt sits on a recliner but is not able to fully elevate her legs. She has tried compression socks in the past but were too painful. Pt wears 3L of O2 at all times at baseline. Daughter reports pt is not getting good care at [facility] but is planning to relocate the pt to [place]. Her PCP is Dr. Reji Valverde. PMHx includes DM, HTN, high cholesterol, dementia. Pt is DNR and DNI. She is comfort care per [facility] and [place] records, per nurse's note. - History Of Current Complaint Chief Complaint: EDGeneral Time Seen by Provider: 10/26/18 13:47 Hx Obtained From: Patient, Family/Investigation Lieutenant - Daughter Onset/Duration: Lasting Days, Still Present Timing: Days Severity Currently: Moderate Location: Pain At: - left heel Aggravating Factor(s): nothing Alleviating Factor(s): nothing Associated Signs And Symptoms: Positive: Edema - in bilateral LE. Negative: SOB , Cough, Chest Pain, Nausea, Vomiting, Abdominal Pain, Fever - Allergies/Home Medications Allergies/Adverse Reactions: Allergies Allergy/AdvReac Type Severity Reaction Status Date / Time Penicillins Allergy Unknown Verified 07/14/18 22:08 Reaction Details Sulfa (Sulfonamide Allergy Unknown Verified 07/14/18 22:07 Antibiotics) Reaction Details Home Medications: Home Medications Apixaban* [Eliquis*] 5 mg PO BID 10/26/18 [History Confirmed 10/26/18] Gabapentin CAP(*) [Neurontin 400 mg CAP(*)] 400 mg PO BID 10/26/18 [History Confirmed 10/26/18] HYDROcodone/ACETAMIN 5-325 MG* [[place] 5-325 TAB*] 1 tab PO BID PRN 10/26/18 [ History Confirmed 10/26/18] Losartan TAB* [Cozaar TAB*] 100 mg PO DAILY 10/26/18 [History Confirmed 10/26/18 ] Minerin Cream* [Eucerin Cream*] 1 applic TOPICAL BID 10/26/18 [History Confirmed 10/26/18] Oxybutynin XL TAB* [Ditropan XL TAB*] 10 mg PO DAILY 10/26/18 [History Confirmed 10/26/18] Sodium Phosphate,Loup-Dibasic [Enema Ready To Use] 133 ml LA DAILY PRN 10/26/18 [History Confirmed 10/26/18] PMH/Surg Hx/FS Hx/Imm Hx Endocrine/Hematology History: Reports: Hx Diabetes - insulin, Hx Anemia Denies: Hx Anticoagulant Therapy, Hx Blood Disorders, Hx Blood Transfusions, Hx Bone Marrow Disease, Hx Systemic Lupus Erythematosus, Hx Sickle Cell Disease , Hx Thyroid Disease, Hx Unexplained Bleeding Cardiovascular History: Reports: Hx Congestive Heart Failure, Hx Coronary Artery Disease, Hx Embolism - PAtient states in her corotid artery, Hx Hypercholesterolemia, Hx Hypertension, Hx Syncope - 2 weeks ago in shower Denies: Hx Aneurysm, Hx Angina, Hx Angioplasty, Hx Auto Implanted Cardiovert Defib, Hx Cardiac Arrest, Hx Cardiomegaly, Hx Congenital Heart Disease, Hx Deep Vein Thrombosis, Hx Hypotension, Hx Pacemaker/ICD, Hx Peripheral Vascular Disease, Hx Rheumatic Fever, Hx Valvular Heart Disease Respiratory History: Reports: Hx Chronic Obstructive Pulmonary Disease (COPD), Hx Pneumonia, Hx Seasonal Allergies, Hx Sleep Apnea Denies: Hx Asthma, Hx Chronic Bronchitis, Hx Cystic Fibrosis, Hx Lung Cancer , Hx Pleural Effusion, Hx Pulmonary Edema, Hx Pulmonary Embolism GI History: Reports: Hx Gall Bladder Disease, Hx Gastroesophageal Reflux Disease - TUMS Denies: Hx Cirrhosis, Hx Crohn's Disease, Hx Diverticulosis, Hx Gastrointestinal Bleed, Hx Hiatal Hernia, Hx Irritable Bowel, Hx Jaundice, Hx Obstructive Bowel, Hx Ileostomy, Hx Pyloric Stenosis, Hx Ulcer History: Reports: Other Problems/Disorders - some kind of kidney problem when young, hospitalized. Denies: Hx Acute Renal Failure, Hx Benign Prostatic Hyperplasia, Hx Chronic Renal Failure, Hx Dialysis, Hx Kidney Infection - chronic UTI, Hx Kidney Stones Musculoskeletal History: Reports: Hx Arthritis, Hx Bursitis, Hx Gout - Last year , Hx Orthopedic Injury - Fell on knee 2 weeks ago. Has been to physical therapy Denies: Hx Back Problems, Hx Congenital Bone Abnormalities, Hx Fibromyalgia, Hx Osteoporosis, Hx Scoliosis, Hx Tendonitis Sensory History: Reports: Hx Cataracts, Hx Contacts or Glasses, Hx Glaucoma, Hx Macular Degeneration, Hx Vision Problem Denies: Hx Eye Injury, Hx Eye Prosthesis, Hx Legally Blind, Hx Deafness, Hx Hearing Aid, Hx Hearing Problem Opthamlomology History: Reports: Hx Cataracts, Hx Contacts or Glasses, Hx Glaucoma, Hx Macular Degeneration, Hx Vision Problem Denies: Hx Eye Injury, Hx Eye Prosthesis, Hx Legally Blind Neurological History: Reports: Hx Dementia, Hx Headaches, Hx Transient Ischemic Attacks (TIA) Denies: Hx Developmental Delay, Hx Migraine, Hx Nerve Disease, Hx Seizures, Hx Spinal Cord Injury Psychiatric History: Reports: Hx Anxiety - "sometimes" Denies: Hx Attention Deficit Hyperactivity Disorder, Hx Eating Disorder, Hx Depression, Hx Panic Disorder, Hx Post Traumatic Stress Disorder, Hx Inpatient Treatment, Hx Community Mental Health Tx, Hx Schizophrenia, Hx Bipolar Disorder , Hx Suicide Attempt, Hx of Violent Episodes Against Others, Hx Substance Abuse - Cancer History Hx Chemotherapy: No Hx Radiation Therapy: No Hx Palliative Cancer Treatment: No - Surgical History Surgery Procedure, Year, and Place: BILAT SHOULDER ROTATOR CUFF REPAIRS; BILAT CARPAL TUNNEL, LIPOTRIPSY OF RENAL CALCULI, GALL BLADDER REMOVED. APPENDECTOMY, Carotid stents b/l Hx Anesthesia Reactions: No - Immunization History Date of Tetanus Vaccine: PT STATES UNSURE Date of Influenza Vaccine: NONE Infectious Disease History: No Infectious Disease History: Denies: Hx Clostridium Difficile, Hx Hepatitis, Hx Human Immunodeficiency Virus (HIV), Hx of Known/Suspected MRSA, Hx Shingles, Hx Tuberculosis, Hx Known/ Suspected VRE, Hx Known/Suspected VRSA, History Other Infectious Disease, Traveled Outside the [place] in Last 30 Days - Family History Known Family History: Positive: Hypertension - Social History Alcohol Use: None Hx Substance Use: No Substance Use Type: Reports: None Hx Tobacco Use: No Smoking Status (MU): Never Smoked Tobacco Review of Systems Constitutional: Other - POS: weight gain Negative: Fever, Chills Negative: Erythema Negative: Sore Throat Negative: Chest Pain Negative: Shortness Of Breath, Cough Negative: Abdominal Pain, Vomiting, Nausea Negative: dysuria, hematuria Positive: Edema - in bilateral LE. Negative: Myalgia Negative: Rash Neurological: Other - NEGATIVE: dizziness All Other Systems Reviewed And Are Negative: Yes Physical Exam - Summary Physical Exam Summary: Constitutional: Well-developed, Well-nourished, Alert. (-) Distressed Skin: Warm, Dry HENT: Normocephalic; Atraumatic Eyes: Conjunctiva normal Neck: Musculoskeletal ROM normal neck. (-) JVD, (-) Stridor, (-) Tracheal deviation Cardio: Rhythm regular, rate normal, Heart sounds normal; Intact distal pulses; The pedal pulses are 2+ and symmetric. Radial pulses are 2+ and symmetric. (-) Murmur Pulmonary/Chest wall: Effort normal. (-) Respiratory distress, (-) Wheezes, (-) Rales. (+) Mild crackles. Abd: Soft, (-) Tenderness, (-) Distension, (-) Guarding, (-) Rebound Musculoskeletal: 1+ pitting edema in bilateral lower extremities. Lymph: (-) Cervical adenopathy Neuro: Alert, Oriented x3 Psych: Mood and affect Normal Triage Information Reviewed: Yes Vital Signs On Initial Exam: Initial Vitals Temp Pulse Resp BP Pulse Ox 97.6 F 61 18 183/67 98 10/26/18 12:35 10/26/18 12:35 10/26/18 12:35 10/26/18 12:35 10/26/18 12:35 Vital Signs Reviewed: Yes Diagnostics - Vital Signs Vital Signs Temp Pulse Resp BP Pulse Ox 10/26/18 13:07 56 18 159/61 90 10/26/18 13:06 57 13 90 10/26/18 12:35 97.6 F 61 18 183/67 98 - Laboratory Result Diagrams: 10/26/18 14:44 10/26/18 14:44 Lab Statement: Any lab studies that have been ordered have been reviewed, and results considered in the medical decision making process. - Radiology Chest XR Radiology Interpretation Completed By: Radiologist Summary of Radiographic Findings: IMPRESSION: Cardiomegaly without evidence for pulmonary edema. No evidence for acute intrathoracic disease. Dr. Marrufo has reviewed this report. - EKG 13:42 Cardiac Rate: Bradycardia - at 55 bpm EKG Rhythm: Sinus Bradycardia Summary of EKG Findings: No STEMI. Re-Evaluation - Re-Evaluation First Eval Re-Evaluation Time: 17:26 Comment: Reviewed results with pt. Patient does not want her daughter to be called. She will be discharged home with follow up from her PCP in 2-3 days. Complex Multi-Symp Course/Dx Assessment/Plan: Pt is a 77 y/o female, accompanied by daughter and granddaughter, presenting to [facility] via EMS from [facility] for fluid retention and weight gain. Pt reports she has bilateral lower extremity swelling and her lower abdomen is pruritic. She notes she has a wound on her left heel that is tender. Per daughter, pt did not eat lunch today and did not get her insulin shot. Labs remarkable for hemoglobin of 10.6, hematocrit of 32 , Bun of 46, creatinine of 1.35, glucose of 235, BNP of 187. Chest XR shows cardiomegaly without evidence for pulmonary edema. No evidence for acute intrathoracic disease. Discussed with Darline, pt's daughter, and she has asked to be called back with results. No signs of pulmonary edema or SOB. I have written the pt a prescription for well fitting compression stockings and increase 10 mg of torsemide for 7 days. Pt will be discharged home with follow up from her PCP in 2-3 days. She was given instructions to return to the ED for any new or worsening symptoms. Patient states she does NOT want her daughter to be called. - Diagnoses Provider Diagnoses: CHF (congestive heart failure), Peripheral edema Discharge - Sign-Out/Discharge Documenting (check all that apply): Patient Departure - Discharge home Patient Received Moderate/Deep Sedation with Procedure: No - Discharge Plan Condition: Stable Disposition: HOME Prescriptions: Torsemide TAB* [Demadex 20 MG*] 50 mg PO DAILY #18 tab Patient Education Materials: Leg Edema (ED) Referrals: Reji Valverde MD [Primary Care Provider] - Additional Instructions: Follow up with your primary care provider in 2-3 days. RETURN TO THE EMERGENCY DEPARTMENT FOR CHANGING OR WORSENING SYMPTOMS. - Attestation Statements Document Initiated by Scribe: Yes Documenting Scribe: Yue No Provider For Whom Scribe is Documenting (Include Credential): Jairo Marrufo MD Scribe Attestation: Yue Deng, scribed for Jairo Marrufo MD on 10/26/18 at 1733. Status of Scribe Document: Ready
[2018-10-26] MEDS ORDERED: Furosemide TAB* 20 MG PO ONE (14:06)
[2018-10-26 14:54] LABS: ABS Eosinophils 0.4 10^3/ul (0-0.6); ABS Lymphocytes 1.3 10^3/ul (1.0-4.8); ABS Monocytes 0.5 10^3/ul (0-0.8); ABS Neutrophils 6.3 10^3/ul (1.5-7.7); Eosinophil % 4.1 %; Hematocrit 32 % (35-47); Hemoglobin 10.6 g/dL (12.0-16.0); Lymphocyte % 15.1 %; Mean Corpuscular HGB Conc 33 g/dL (31-36); Mean Corpuscular Hemoglobin 29 pg (27-31); Mean Corpuscular Volume 90 fL (80-97); Mean Platelet Volume 7.3 fL (7.4-10.4); Platelet Count 294 10^3/uL (150-450); Red Blood Count 3.62 10^6 /uL (3.70-4.87); Red Cell Distribution Width 15 % (10-15); White Blood Count 8.5 10^3/uL (3.5-10.8)
[2018-10-26 15:23] LABS: Troponin I 0.02 ng/mL (<0.04)
[2018-10-26 16:11] LABS: Albumin 3.4 g/dL (3.2-5.2); Albumin/Globulin Ratio 0.8 (1-3); BUN/Creatinine Ratio 34.1 (8-20); Calcium 9.9 mg/dL (8.6-10.3); EGFR African American 45.9 (>60); EGFR Non-African American 37.9 (>60); Globulin 4.3 g/dL (2-4); Potassium 4.7 mmol/L (3.5-5.0); Total Bilirubin 0.5 mg/dL (0.2-1.0); Total Protein 7.7 g/dL (6.4-8.9)
[2018-10-26 17:57] VITALS: BP 174/64
== END 2018-10-26 17:56 | disposition home or self-care (01) ==
LOC: ED 12:30
DX: I50.9 Heart failure, unspecified (principal); R60.0 Localized edema; I51.7 Cardiomegaly; R00.1 Bradycardia, unspecified; E11.9 Type 2 diabetes mellitus without complications; Z79.4 Long term (current) use of insulin; Z86.718 Personal history of other venous thrombosis and embolism; Z79.01 Long term (current) use of anticoagulants; J44.9 Chronic obstructive pulmonary disease, unspecified; Z99.81 Dependence on supplemental oxygen; K21.9 Gastro-esophageal reflux disease without esophagitis; Z95.5 Presence of coronary angioplasty implant and graft; Z88.0 Allergy status to penicillin
CPT/HCPCS: 36415; 71045; 80053; 83605; 83880; 84484; 85025; 93005; 99284; A9270-GY

== ENCOUNTER 2019-01-20 12:55 | Inpatient (IN) | payer MEDICARE ==
--- NOTE | 2019-01-20 13:06 | ED ---
Altered Mental Status - HPI Summary HPI Summary: LEVEL 5 CAVEAT secondary to AMS. The patient is a 78 y/o F arriving by ambulance to [facility] from [facility] with chief complaint of AMS worsening over the last two days. Per staff, she has declined in mentation status as although she has mild dementia at baseline, but she has been unable to feed herself as usual. She denies any pain at this time, including SOB, CP, abd pain, nausea, or change in urination ( has manuel catheter). Per medical records from facility, pt also has DM (BG in ambulance was 223), HTN, HLD, COPD (2L O2), GERD, chronic DVT, and CHF. She had anticoagulant Apixaban this morning, and she also had prescribed narcotic this morning. Nonsmoker, no EtOH, no substance use. Patients medications reviewed this visit. Allergies noted. Records obtained and reviewed from facility. DNR, DNI. - History Of Current Complaint Stated Complaint: ALTERED MENTAL STATUS PER EMS Time Seen by Provider: 01/20/19 12:56 Hx Obtained From: EMS, Medical Records Hx From Patient Unobtainable Due To: Altered Mental Status - LEVEL 5 CAVEAT Hx Last Menstrual Period: n/a Onset/Duration: Still Present Timing: Lasting Days - two Severity Initially: Mild Severity Currently: Moderate Character: Confusion Aggravating Factor(s): Unknown Alleviating Factor(s): Unknown Associated Signs And Symptoms: Negative: Nausea - Allergies/Home Medications Allergies/Adverse Reactions: Allergies Allergy/AdvReac Type Severity Reaction Status Date / Time codeine Allergy Unknown Verified 12/24/18 20:44 Reaction Details Penicillins Allergy Unknown Verified 07/14/18 22:08 Reaction Details Sulfa (Sulfonamide Allergy Unknown Verified 07/14/18 22:07 Antibiotics) Reaction Details Home Medications: Home Medications Sennosides [Natural Laxative] 17.2 mg PO BEDTIME PRN 01/20/19 [History Confirmed 01/20/19] PMH/Surg Hx/FS Hx/Imm Hx Endocrine/Hematology History: Reports: Hx Diabetes - insulin, Hx Anemia Denies: Hx Anticoagulant Therapy, Hx Blood Disorders, Hx Blood Transfusions, Hx Bone Marrow Disease, Hx Systemic Lupus Erythematosus, Hx Sickle Cell Disease , Hx Thyroid Disease, Hx Unexplained Bleeding Cardiovascular History: Reports: Hx Congestive Heart Failure, Hx Coronary Artery Disease, Hx Embolism - PAtient states in her corotid artery, Hx Hypercholesterolemia, Hx Hypertension, Hx Syncope - 2 weeks ago in shower Denies: Hx Aneurysm, Hx Angina, Hx Angioplasty, Hx Auto Implanted Cardiovert Defib, Hx Cardiac Arrest, Hx Cardiomegaly, Hx Congenital Heart Disease, Hx Deep Vein Thrombosis, Hx Hypotension, Hx Pacemaker/ICD, Hx Peripheral Vascular Disease, Hx Rheumatic Fever, Hx Valvular Heart Disease Respiratory History: Reports: Hx Chronic Obstructive Pulmonary Disease (COPD), Hx Pneumonia, Hx Seasonal Allergies, Hx Sleep Apnea Denies: Hx Asthma, Hx Chronic Bronchitis, Hx Cystic Fibrosis, Hx Lung Cancer , Hx Pleural Effusion, Hx Pulmonary Edema, Hx Pulmonary Embolism GI History: Reports: Hx Gall Bladder Disease, Hx Gastroesophageal Reflux Disease - TUMS Denies: Hx Cirrhosis, Hx Crohn's Disease, Hx Diverticulosis, Hx Gastrointestinal Bleed, Hx Hiatal Hernia, Hx Irritable Bowel, Hx Jaundice, Hx Obstructive Bowel, Hx Ileostomy, Hx Pyloric Stenosis, Hx Ulcer History: Reports: Other Problems/Disorders - some kind of kidney problem when young, hospitalized. Denies: Hx Acute Renal Failure, Hx Benign Prostatic Hyperplasia, Hx Chronic Renal Failure, Hx Dialysis, Hx Kidney Infection - chronic UTI, Hx Kidney Stones Musculoskeletal History: Reports: Hx Arthritis, Hx Bursitis, Hx Gout - Last year , Hx Orthopedic Injury - Fell on knee 2 weeks ago. Has been to physical therapy Denies: Hx Back Problems, Hx Congenital Bone Abnormalities, Hx Fibromyalgia, Hx Osteoporosis, Hx Scoliosis, Hx Tendonitis Sensory History: Reports: Hx Cataracts, Hx Contacts or Glasses, Hx Glaucoma, Hx Macular Degeneration, Hx Vision Problem Denies: Hx Eye Injury, Hx Eye Prosthesis, Hx Legally Blind, Hx Deafness, Hx Hearing Aid, Hx Hearing Problem Opthamlomology History: Reports: Hx Cataracts, Hx Contacts or Glasses, Hx Glaucoma, Hx Macular Degeneration, Hx Vision Problem Denies: Hx Eye Injury, Hx Eye Prosthesis, Hx Legally Blind Neurological History: Reports: Hx Dementia, Hx Headaches, Hx Transient Ischemic Attacks (TIA) Denies: Hx Developmental Delay, Hx Migraine, Hx Nerve Disease, Hx Seizures, Hx Spinal Cord Injury Psychiatric History: Reports: Hx Anxiety - "sometimes" Denies: Hx Attention Deficit Hyperactivity Disorder, Hx Eating Disorder, Hx Depression, Hx Panic Disorder, Hx Post Traumatic Stress Disorder, Hx Inpatient Treatment, Hx Community Mental Health Tx, Hx Schizophrenia, Hx Bipolar Disorder , Hx Suicide Attempt, Hx of Violent Episodes Against Others, Hx Substance Abuse - Cancer History Hx Chemotherapy: No Hx Radiation Therapy: No Hx Palliative Cancer Treatment: No - Surgical History Surgical History: Yes Surgery Procedure, Year, and Place: BILAT SHOULDER ROTATOR CUFF REPAIRS; BILAT CARPAL TUNNEL, LIPOTRIPSY OF RENAL CALCULI, GALL BLADDER REMOVED. APPENDECTOMY, Carotid stents b/l Hx Anesthesia Reactions: No - Immunization History Date of Tetanus Vaccine: PT STATES UNSURE Date of Influenza Vaccine: NONE Infectious Disease History: Denies: Hx Clostridium Difficile, Hx Hepatitis, Hx Human Immunodeficiency Virus (HIV), Hx of Known/Suspected MRSA, Hx Shingles, Hx Tuberculosis, Hx Known/ Suspected VRE, Hx Known/Suspected VRSA, History Other Infectious Disease - Family History Known Family History: Positive: Hypertension - Social History Occupation: Retired Lives: Assisted Living Alcohol Use: None Hx Substance Use: No Substance Use Type: Reports: None Hx Tobacco Use: No Smoking Status (MU): Never Smoked Tobacco Review of Systems Negative: Chest Pain Negative: Shortness Of Breath Negative: Abdominal Pain, Nausea Positive: other - Negative: urinary changes with manuel. Neurological: Other - AMS All Other Systems Reviewed And Are Negative: No - Comments Additional Review of Systems Comments: LEVEL 5 CAVEAT secondary to AMS. Physical Exam - Summary Physical Exam Summary: Vital Signs Reviewed: Yes Alert to name, - not place, year Eyes: Conjunctiva Clear, MU - small 3mm b/l EOM intact and full ENT: Hearing grossly normal TM x 2 clear, mmoist, uvula midline, no exudate, no erythema Neck: Positive: Supple Respiratory: Positive: No respiratory distress, No accessory muscle use, mild wheeze upper lobes b/l pt with intermittent cough, non productive Cardiovascular: RRR nl s1, s2 no m/r CBT <2 sec, 2+ edema b/l LE abd soft + BS nt/nd no guarding, no distension Musculoskeletal Exam: LOMBARDI x 4 without difficulty Strength Intact, ROM Intact Neurological: Positive: Alert, + sensation throughout Psychological: Positive: Normal Response To yarn sorter Skin: Positive: no rash, no ecchymosis Triage Information Reviewed: Yes Vital Signs Reviewed: Yes Completion Of Physical Exam Limited Due To: Altered Mental Status, Level 5 - Tyler Coma Scale Best Eye Response: 4 - Spontaneous Best Motor Response: 6 - Obeys Commands Best Verbal Response: 4 - Confused Coma Scale Total: 14 Diagnostics - Laboratory Result Diagrams: 01/20/19 13:57 01/20/19 13:57 Lab Statement: Any lab studies that have been ordered have been reviewed, and results considered in the medical decision making process. - Radiology CXR Radiology Interpretation Completed By: Radiologist Summary of Radiographic Findings: Impression: No active cardiopulmonary disease. ED physician has reviewed this report. - CT Brain CT CT Interpretation Completed By: Radiologist Summary of CT Findings: Impression: 1. No acute intracranial pathology. 2. Chronic small vessel ischemic changes with stable right frontal encephalomalacia. ED physician has reviewed this report. - EKG 1306 Cardiac Rate: NL - 60 bpm EKG Rhythm: Sinus Rhythm Summary of EKG Findings: NSR at 60 bpm, inverted T-wave in aVL, slight ST depression in V6. No STEMI. Re-Evaluation - Re-Evaluation First Eval Re-Evaluation Time: 14:40 Comment: I discussed all lab and imaging results with the patient and her daugher. - none concerning results + uti - chronic manuel Second Eval Re-Evaluation Time: 15:00 Change: Unchanged Comment: Narcan didn't improve pt's mental status. We will administer a second dose, but if there isn't improvement, we will likely admit for AMS. Third Eval Re-Evaluation Time: 15:20 Change: Unchanged Comment: Second dose of Narcan did not change the patient's mentation status. I will speak with the hospitalist services for admission. Fourth Eval Re-Evaluation Time: 15:27 Comment: I confirmed admission with the patient and her daughter following acceptance from Dr. Pike. We will administer Rocephin instead of Penicillin because Pencillin causes her pruritus. Altered Mental Statu Course/Dx - Course Course Of Treatment: Pt presents to ED by EMS. Pt with wax wane mental states x 2 weeks, significanlty worse last 48 hour. No fever, no obvious pain. Pt with deep, slow respirations and coarse cough. differential includes, infection, hypoxia, intracrandial process, opiate sedation (pt gets scheduled percocet BID) . will check labs, ct, narcan and reasses. anditicpate pt will rquire admission - Diagnoses Provider Diagnoses: Change in mental status - Provider Notifications Discussed Care Of Patient With: Gloria Pike - hospitalist Time Discussed With Above Provider: 15:23 Instructed by Provider To: Admit As Inpatient - Dr. Pike accepts the patient for admission. - Critical Care Time Critical Care Time: 30-74 min Discharge ED - Sign-Out/Discharge Documenting (check all that apply): Patient Departure - Patient accepted for admission by Dr. Pike. Patient Received Moderate/Deep Sedation with Procedure: No - Discharge Plan Condition: Improved Disposition: ADMITTED TO [facility] - Billing Disposition and Condition Condition: IMPROVED Disposition: Admitted to [facility] - Attestation Statements Document Initiated by Scribe: Yes Documenting Scribe: Adrianna Valdovinos Provider For Whom Scribe is Documenting (Include Credential): Dr. Michelle Hanson MD Scribe Attestation: Adrianna Deng scribed for Dr. Michelle Hanson MD on 01/26/19 at 2033. Scribe Documentation Reviewed: Yes Provider Attestation: The documentation as recorded by the Adrianna worthy accurately reflects the service I personally performed and the decisions made by me, Dr. Michelle Hanson MD Status of Scribe Document: Viewed
[2019-01-20] MEDS ORDERED: Albuterol (2.5 MG) 0.5 % CONC 2.5 MG/0.5 ML NEB.SOLN (ICU and ED only) INH ONE (13:16)
[2019-01-20] MEDS ORDERED: Albuterol 2.5 MG/3 ML NEB.SOL* (0.083%) INH ONE (13:22)
[2019-01-20 14:09] LABS: ABS Basophils 0.1 10^3/ul (0-0.2); ABS Eosinophils 0.3 10^3/ul (0-0.6); ABS Lymphocytes 1.5 10^3/ul (1.0-4.8); ABS Monocytes 0.9 10^3/ul (0-0.8); ABS Neutrophils 9.7 10^3/ul (1.5-7.7); Eosinophil % 2.7 %; Hematocrit 35 % (35-47); Hemoglobin 11.3 g/dL (12.0-16.0); Lymphocyte % 11.6 %; Mean Corpuscular HGB Conc 32 g/dL (31-36); Mean Corpuscular Hemoglobin 29 pg (27-31); Mean Corpuscular Volume 91 fL (80-97); Mean Platelet Volume 7.7 fL (7.4-10.4); Platelet Count 290 10^3/uL (150-450); Red Blood Count 3.85 10^6 /uL (3.70-4.87); Red Cell Distribution Width 15 % (10-15); White Blood Count 12.5 10^3/uL (3.5-10.8)
[2019-01-20 14:17] LABS: INR 1.52 (0.82-1.09)
[2019-01-20 14:30] LABS: Albumin 3.4 g/dL (3.2-5.2); Albumin/Globulin Ratio 0.9 (1-3); BUN/Creatinine Ratio 41.9 (8-20); Calcium 9.5 mg/dL (8.6-10.3); EGFR African American 37.6 (>60); EGFR Non-African American 31.1 (>60); Globulin 3.8 g/dL (2-4); Magnesium 2.4 mg/dL (1.9-2.7); Total Bilirubin 0.4 mg/dL (0.2-1.0); Total Protein 7.2 g/dL (6.4-8.9)
[2019-01-20] MEDS ORDERED: Naloxone* 0.4 MG/ML 1 ML VIAL IV PUSH ONE ×2 (14:53→15:08)
[2019-01-20] MEDS ORDERED: NS 0.9% 1000 ML** 400 ML IV ONE (15:00)
[2019-01-20 15:11] LABS: Urine Appearance Turbid; Urine Bacteria 1+ (Absent); Urine Bilirubin Negative (Negative); Urine Blood 2+ (Negative); Urine Color Amber; Urine Glucose Negative (Negative); Urine Ketones Negative (Negative); Urine Nitrite Negative (Negative); Urine Protein Negative (Negative); Urine Red Blood Cell 3+(>10/hpf) (Absent); Urine Renal Epithelial Cells Present (Absent); Urine Specific Gravity 1.012 (1.010-1.030); Urine Squamous Epithelial Cell Present (Absent); Urine Urobilinogen Negative (Negative); Urine White Blood Cell 3+(>20/hpf) (Absent)
[2019-01-20 15:18] LABS: TSH (Thyroid Stimulating Horm) 1.82 mcIU/mL (0.34-5.60)
[2019-01-20] MEDS ORDERED: cefTRIAXone(*) 1 GM in NS 0.9% 50 ML* 50 ML IVPB ONE (15:28)
[2019-01-20 16:11] LABS: C Reactive Protein 50.24 mg/L (<8.01)
[2019-01-20] MEDS ORDERED: Morphine INJ* 2 MG/ML 1 ML SYRINGE (TWO MG - NEW SYRINGE VERSION) IV PRN (16:49)
[2019-01-20] MEDS ORDERED: Dextrose 50% VIAL 50 ml IV PUSH PRN (17:01)
[2019-01-20] MEDS ORDERED: Sodium Phosphate ADULT ENEMA* 118 ml bottle PR PRN (17:46)
[2019-01-20] MEDS ORDERED: Senna TAB 8.6 mg* TAB PO PRN (17:46)
[2019-01-20] MEDS ORDERED: HYDROcodone/ACETAMIN 5-325 MG* 1 TAB PO PRN (17:46)
[2019-01-20] MEDS ORDERED: Acetaminophen TAB* 325 MG PO PRN (17:46)
[2019-01-20] MEDS ORDERED: Albuterol HFA INHALER* 8 gm MDI INH PRN (17:46)
[2019-01-20] MEDS ORDERED: Morphine ORAL CONCENTRATE* 5 MG/0.25 ML ORAL.SYRIN SL PRN (18:23)
--- NOTE | 2019-01-20 20:33 | HP ---
HISTORY AND PHYSICAL: ADDENDUM: I just received a confirmation from the patient's nurse that the family decided for the patient to be comfort care. At this point, most of the p.o. medications are going to be stopped. We will also stop the patient's Eliquis and institute no DVT prophylaxis. The patient is going to be placed on morphine and we will await palliative care consultation for further help with management. [id number]/CPS #: [id number] MTDD
[2019-01-20] MEDS ORDERED: Apixaban* 5 MG TAB PO SCH (21:00)
[2019-01-20] MEDS ORDERED: Metoprolol Tartrate TAB* 100 MG TAB PO SCH (21:00)
[2019-01-20] MEDS ORDERED: Insulin LISPRO* 1 UNITS UNIT SUBCUT SCH (21:00)
--- NOTE | 2019-01-20 21:23 | HP ---
ADDENDUM NOW INCLUDED ON THIS REPORT CC: Dr. Valverde * HISTORY AND PHYSICAL: DATE OF ADMISSION: 01/20/19 PRIMARY CARE PROVIDER: Dr. Valverde. CHIEF COMPLAINT: Lethargy. HISTORY OF PRESENT ILLNESS: Shannon Chatman is a 78-year-old female with history of dementia, who has had chronically indwelling Lara catheter in place with recurrent UTIs. She was here in December 2018 with lethargy and UTI. She was treated and went home. The patient's family stated that for the past couple of months the patient has been very declining in her overall status. For the past 2 weeks, she had been barely responding, needed to be fed. She is also bedridden and unable to participate in any kind of activity. She is still swallowing, but she hardly can eat. The patient's family stated that on a good day the patient was able to recognize her family members and know her name. She has been repeating for the past several months that she just wants to be left alone and . Currently, the patient is very lethargic, unable to contribute to the conversation and any information given. Her daughter Lo Wilson is by the bedside and she is giving me any information available and reported in this history and physical. Otherwise, the remaining part of history and physical is obtained from review of medical records. PAST MEDICAL HISTORY: 1. History of CHF. 2. History of chronic DVT in the right lower extremity. 3. History of diabetes type 2. 4. Chronic kidney disease with creatinine baseline of 1.3 to 1.6. 5. History of hypertension. 6. Hyperlipidemia. 7. History of COPD. 8. Gastroesophageal reflux disease. 9. Crohn's disease. 10. Neurogenic bladder with chronic indwelling Lara with recurrent UTIs. PAST SURGICAL HISTORY: 1. Cholecystectomy. 2. Appendectomy. 3. Bilateral carotid stents. 4. Rotator cuff repair. 5. Bilateral carpal tunnel release. MEDICATIONS: Medications at home include: 1. Eucerin cream topical b.i.d. 2. Lipitor 80 mg daily. 3. Sodium phosphate enema a day p.r.n. 4. Lidocaine jelly on a p.r.n. basis. 5. Zofran 4 mg every 6 hours p.r.n. 6. Albuterol inhaler 2 puffs every 4 hours p.r.n. 7. Nitroglycerin tablets sublingually 0.4 mg on a p.r.n. basis. 8. Milk of magnesia on a p.r.n. basis. 9. Glycerin suppository on p.r.n. basis. 10. Acetaminophen on a p.r.n. basis. 11. Insulin as per sliding scale. 12. Symbicort 80/4.5 two puffs b.i.d. 13. Neurontin 400 mg b.i.d. 14. Metoprolol tartrate 100 mg b.i.d. 15. Insulin Lantus 25 units b.i.d. 16. [place] 5/325 one tablet b.i.d. p.r.n. 17. Eliquis 5 mg b.i.d. 18. Torsemide 40 mg daily. 19. Spiriva 2 inhalations daily. 20. Senna 17.2 mg at bedtime. 21. Ditropan XL 10 mg daily. 22. Omeprazole 20 mg daily. 23. Singulair 10 mg daily. 24. Namenda XR 14 mg daily. 25. Losartan 100 mg daily. 26. Lipitor 80 mg daily. 27. Flonase 1 spray both nostrils daily p.r.n. 28. Aspirin 81 mg daily. 29. Acyclovir 200 mg daily. ALLERGIES: CODEINE, PENICILLINS, and SULFA. FAMILY HISTORY: Unobtainable. SOCIAL HISTORY: The patient is resident of [facility]. She has been bedridden and unable to feed herself for the past several months. There is no history of smoking or alcohol use reported. Her healthcare proxy is her daughter who is present in the room. The patient is do not resuscitate and do not intubate. She used to be comfort care, but as per the patient's daughter after discussion at the snf she was convinced to place the patient on limited medical interventions with the instructions to send the patient to the hospital as needed. REVIEW OF SYSTEMS: Please see the history of present illness, otherwise unobtainable from the patient. PHYSICAL EXAMINATION GENERAL: The patient is a 78-year-old male who is not in acute distress. She is lying in bed with rhonchorous breathing. She is able to awake slightly with command, but drifts off to sleep shortly. She was able to tell me that she is not in pain. Otherwise, she is not really able to follow commands. VITAL SIGNS: Blood pressure of 107/56, heart rate of 62 and regular, respiratory rate 16, oxygen saturation 95% on room air, temperature of 97.4. HEENT: Head atraumatic, normocephalic. Eyes: Pupils are equal and reactive to light and accommodation. Oropharynx is clear. Mucosa moist. NECK: Supple. No JVD. No bruit bilaterally. RESPIRATORY: Rhonchi in bilateral upper lungs, otherwise clear. CARDIOVASCULAR: Regular rate and rhythm. No murmur. ABDOMEN: Soft, nontender. Bowel sounds are present in all 4 quadrants. EXTREMITIES: There is trace ankle edema. Pulses +2 bilaterally. There is no clubbing and cyanosis. SKIN: On evaluation of the skin, the patient has a small decubitus ulcer of approximately 0.5 cm in the left heel that is covered with eschar, unstageable. There is no evidence of skin infection, cellulitis, or rashes. NEUROLOGICAL: The patient was not able to contribute to the evaluation. Her face is symmetrical and her speech is clear. She is very lethargic. She withdraws to pain, and Babinski's are negative in bilateral feet. DIAGNOSTIC STUDIES/LAB DATA: White blood cell count 12.5, hemoglobin of 11.3, hematocrit 35, and platelets 290. INR was 1.52. ABG showed pH of 7.45, pCO2 of 43, pO2 of 90, bicarb of 29. Sodium 136, potassium 5.0, chloride 99, carbon dioxide 31, BUN 67, creatinine 1.6. Liver function test unremarkable. Glucose level 231, C-reactive protein 50, TSH of 1.82. Urinalysis +2 blood, +3 esterase, +3 wbc's, +3 rbc's, +1 bacteria. Portable chest x-ray impression: "No active cardiopulmonary disease." Brain CT impression: "No acute intracranial pathology. Chronic small vessel ischemic changes with stable right frontal encephalomalacia." EKG showed normal sinus rhythm, rate of 60 beats per minute with minimal ST depressions in lateral leads. ASSESSMENT AND PLAN: 1. The patient looks pale and is lethargic, severely dehydrated, likely due to the combination of advancing dementia, dysphagia, and now urinary tract infection. She is not septic on evaluation. I spoke with the family who is disappointed about that the patient was in a similar state 2 weeks ago and she was a little bit better after her hospital stay on intravenous fluid and antibiotics, but now she is "back where she started 2 or 3 weeks ago." At this point, I discussed with the patient's family that this is likely a progression of her dementia and although we can reverse it partially with the IV fluids and antibiotics, she will likely come back with another infection in another few weeks. At this point, family requested palliative care consult. They are also in the process of deciding if the patient should be comfort care or not from the admission time. The patient received a dose of ceftriaxone, intravenous fluids in the emergency room and currently she is treated for overnight. Unfortunately, before the end of this dictation, the patient's family was not able to make the definitive decision of whether the patient should be comfort care or treated for her UTI and dehydration. Once again, the patient is going to be placed on medical admission. So far, she had been already treated for the next 24 hours and will await family decision further. Palliative care consult will be requested. 2. The patient's code status is do not resuscitate and do not intubate. 3. In regards to the patient's history of chronic deep venous thrombosis, we will attempt to use Eliquis p.o., but I am not sure if patient is able to take it. 4. In regards to the patient's dysphagia, the patient had been on mechanical ground diet, which is going to be provided for the patient. 5. Please note that the patient has advanced dementia for which Namenda is going to be continued. TIME SPENT: Approximately 80 minutes were spent in patient's care in the patient's room with conversation with patient's daughter, their son, and her son -in-law. ADDENDUM: I just received confirmation from the patient's nurse that the family decided for the patient to be comfort care. At this point, most of the p.o. medications are going to be stopped. We will also stop the patient's Eliquis and institute no DVT prophylaxis. The patient is going to be placed on morphine and we will await palliative care consultation for further help with management. [id number]/CPS #: [id number] #: [id number] MARTITA
[2019-01-21] MEDS ORDERED: Aspirin 81 mg CHEW TAB* 81 MG TAB.CHEW PO SCH (09:00)
[2019-01-21] MEDS ORDERED: MEMANTINE 14 MG PO SCH (09:00)
[2019-01-21] MEDS ORDERED: Pantoprazole TAB * 40 MG TAB PO SCH (09:00)
--- NOTE | 2019-01-21 10:32 | PN ---
Subjective Date of Service: 01/21/19 Interval History: Pt is seen accompanied by two daughters today. she has improved dramatically. Requested a muffin, awake. c/o productive cough, but the lethargy resolved Objective Active Medications: Acetaminophen (Tylenol Tab*) 650 mg PO Q4H PRN PRN Reason: MILD PAIN or TEMP > 100.4 Hydrocodone Bitart/Acetaminophen ([place] 5-325 Tab*) 1 tab PO BID PRN PRN Reason: PAIN - MODERATE Albuterol (Ventolin Hfa Inhaler*) 2 puff INH Q4H PRN PRN Reason: SHORTNESS OF BREATH Morphine Sulfate (Morphine Oral Concentrate*) 5 mg SL Q2H PRN PRN Reason: comfort Oxygen Devices in Use Now: Nasal Cannula Appearance: 78 yo f in nAD, AAOx2 Eyes: No Scleral Icterus, PERRLA Ears/Nose/Mouth/Throat: NL Teeth, Lips, Gums, Mucous Membranes Moist Neck: NL Appearance and Movements; NL JVP Respiratory: Symmetrical Chest Expansion and Respiratory Effort, - - scant b/l upper lung rhonchi-much improved from prior Cardiovascular: NL Sounds; No Murmurs; No JVD, RRR Abdominal: NL Sounds; No Tenderness; No Distention Lymphatic: No Cervical Adenopathy Extremities: No Edema, No Clubbing, Cyanosis Skin: No Rash or Ulcers Neurological: NL Muscle Strength and Tone Result Diagrams: 01/20/19 13:57 01/20/19 13:57 Assess/Plan/Problems-Billing Assessment: Ms. Chatman is a 78-year-old female with past medical history of congestive heart failure, chronic deep vein thrombosis, diabetes, chronic kidney disease, hypertension, hyperlipidemia, chronic obstructive pulmonary disease, gastroesophageal reflux disease, coronary artery disease and neurogenic bladder with a chronic indwelling Lara, who presented to the emergency room with altered mental status with likely UTI, family requested comfort care - Patient Problems (1) Altered mental status Comment: worsening lethargy and low PO intake due to advanced dementia and UTI Pt's family requested comfort care. Pt (today) is able to contribute stating that her quality of life is such that she wound prefer to "just ". Family and pt confirm today that they want comfort care only Awaiting palliative care consult (2) Dementia Comment: at baseline (3) UTI (urinary tract infection) due to urinary indwelling Lara catheter Current Visit: No Comment: treatment stopped due to comfort care (4) Chronic diastolic (congestive) heart failure Comment: Does not appear to be in acute exacerbation (5) DM w/o complication type II Comment: treatment stopped due to comfort care (6) DNR (do not resuscitate) (7) DVT prophylaxis Comment: Apixaban (with history of chronic DVT)stopped due to comfort care
--- NOTE | 2019-01-21 12:19 | CONSULT ---
Palliative / Hospice Consult Ordering Provider: Gloria Pike - PCP-Abram Referal Reason: Goals of care/no bowel meds/MS & hydrocodone-no symptoms currently - Subjective Code Status: DNR Advance Directives Location: In Chart MOLST Part A Completed: Yes - new MOLST completed with pt & family MOLST Part E Completed:: Yes - new MOLST completed with pt & family - History or Present Illness History or Present Illness: 78yo female resident of [facility] with moderately severe dementia presents with lethargy and change of mental status. PMH is significant for recurrent UTI with indwelling catheter, CHF diastolic EF 65%, moderate pulmonary HTN, chronic DVT, Crohn's disease, DM type 2, CKD, HTN, hyperlipidemia, COPD and GERD. PSHX-non smoker, no etoh lives at [facility] and daughter Lo Wilson is her HCP(on chart). Studies-brain CT-no acute findings, chronic small vessel ischemic changes, stable R frontal encephalomalacia, CXR neg, Ekg-nsr, H/H 11.3/35, BUN/Cr 67/1.60 , egfr 31.1, alb 3.4 and INR 1.52. Pt has been in ER x2 07/27/18 with elevated blood sugar, 10/26/18 with fluid retention, hospital admission 07/15-03/30 for CHF and 12/24- for pneumonia. Pt is admitted with lethargy and altered mental status secondary to dehydration. All history is from pt, family and medical records. Lab Values: Abnormal Lab Results 01/20/19 01/20/19 01/20/19 13:33 13:57 13:57 WBC 12.5 H RBC 3.85 Hgb 11.3 L Hct 35 MCV 91 MCH 29 MCHC 32 RDW 15 Plt Count 290 MPV 7.7 Neut % (Auto) 78.1 Lymph % (Auto) 11.6 Bradford % (Auto) 7.0 Eos % (Auto) 2.7 Baso % (Auto) 0.6 Absolute Neuts (auto) 9.7 H Absolute Lymphs (auto) 1.5 Absolute Monos (auto) 0.9 H Absolute Eos (auto) 0.3 Absolute Basos (auto) 0.1 Absolute Nucleated RBC 0.0 Nucleated RBC % 0.0 INR (Anticoag Therapy) 1.52 H ABG pH 7.45 ABG pCO2 43 ABG pO2 90 ABG HCO3 29.0 ABG O2 Saturation 98.5 H ABG Base Excess 5.2 H Sodium Potassium Chloride Carbon Dioxide Anion Gap BUN Creatinine Est GFR ( Amer) Est GFR (Non-Af Amer) BUN/Creatinine Ratio Glucose Calcium Magnesium Total Bilirubin AST ALT Alkaline Phosphatase Total Creatine Kinase C-Reactive Protein B-Natriuretic Peptide Total Protein Albumin Globulin Albumin/Globulin Ratio TSH Urine Color Urine Appearance Urine pH Ur Specific Imperial Urine Protein Urine Ketones Urine Blood Urine Nitrate Urine Bilirubin Urine Urobilinogen Ur Leukocyte Esterase Urine WBC (Auto) Urine RBC (Auto) Ur Squamous Epith Cells Ur Renal Epithelial Cell Urine Bacteria Urine Glucose 01/20/19 01/20/19 01/20/19 13:57 13:57 14:20 WBC RBC Hgb Hct MCV MCH MCHC RDW Plt Count MPV Neut % (Auto) Lymph % (Auto) Bradford % (Auto) Eos % (Auto) Baso % (Auto) Absolute Neuts (auto) Absolute Lymphs (auto) Absolute Monos (auto) Absolute Eos (auto) Absolute Basos (auto) Absolute Nucleated RBC Nucleated RBC % INR (Anticoag Therapy) ABG pH ABG pCO2 ABG pO2 ABG HCO3 ABG O2 Saturation ABG Base Excess Sodium 136 Potassium 5.0 Chloride 99 L Carbon Dioxide 31 Anion Gap 6 BUN 67 H Creatinine 1.60 H Est GFR ( Amer) 37.6 Est GFR (Non-Af Amer) 31.1 BUN/Creatinine Ratio 41.9 H Glucose 231 H Calcium 9.5 Magnesium 2.4 Total Bilirubin 0.40 AST 20 ALT 18 Alkaline Phosphatase 84 Total Creatine Kinase 139 C-Reactive Protein 50.24 H B-Natriuretic Peptide 190 H Total Protein 7.2 Albumin 3.4 Globulin 3.8 Albumin/Globulin Ratio 0.9 L TSH 1.82 Urine Color Chelsie Urine Appearance Turbid Urine pH 5.0 Ur Specific Imperial 1.012 Urine Protein Negative Urine Ketones Negative Urine Blood 2+ A Urine Nitrate Negative Urine Bilirubin Negative Urine Urobilinogen Negative Ur Leukocyte Esterase 3+ A Urine WBC (Auto) 3+(>20/hpf) A Urine RBC (Auto) 3+(>10/hpf) A Ur Squamous Epith Cells Present A Ur Renal Epithelial Cell Present A Urine Bacteria 1+ A Urine Glucose Negative Laboratory Last Values WBC 12.5 10^3/uL (3.5-10.8) H 01/20/19 13:57 RBC 3.85 10^6 /uL (3.70-4.87) 01/20/19 13:57 Hgb 11.3 g/dL (12.0-16.0) L 01/20/19 13:57 Hct 35 % (35-47) 01/20/19 13:57 MCV 91 fL (80-97) 01/20/19 13:57 MCH 29 pg (27-31) 01/20/19 13:57 MCHC 32 g/dL (31-36) 01/20/19 13:57 RDW 15 % (10-15) 01/20/19 13:57 Plt Count 290 10^3/uL (150-450) 01/20/19 13:57 MPV 7.7 fL (7.4-10.4) 01/20/19 13:57 Neut % (Auto) 78.1 % 01/20/19 13:57 Lymph % (Auto) 11.6 % 01/20/19 13:57 Bradford % (Auto) 7.0 % 01/20/19 13:57 Eos % (Auto) 2.7 % 01/20/19 13:57 Baso % (Auto) 0.6 % 01/20/19 13:57 Absolute Neuts (auto) 9.7 10^3/ul (1.5-7.7) H 01/20/19 13:57 Absolute Lymphs (auto) 1.5 10^3/ul (1.0-4.8) 01/20/19 13:57 Absolute Monos (auto) 0.9 10^3/ul (0-0.8) H 01/20/19 13:57 Absolute Eos (auto) 0.3 10^3/ul (0-0.6) 01/20/19 13:57 Absolute Basos (auto) 0.1 10^3/ul (0-0.2) 01/20/19 13:57 Absolute Nucleated RBC 0.0 10^3/ul 01/20/19 13:57 Nucleated RBC % 0.0 01/20/19 13:57 INR (Anticoag Therapy) 1.52 (0.82-1.09) H 01/20/19 13:57 ABG pH 7.45 (7.35-7.45) 01/20/19 13:33 ABG pCO2 43 mmHg (35-45) 01/20/19 13:33 ABG pO2 90 mmHg (80-100) 01/20/19 13:33 ABG HCO3 29.0 mmol/L (19-31) 01/20/19 13:33 ABG O2 Saturation 98.5 % (94.0-98.0) H 01/20/19 13:33 ABG Base Excess 5.2 mmol/L (-2.0-2.0) H 01/20/19 13:33 Sodium 136 mmol/L (135-145) 01/20/19 13:57 Potassium 5.0 mmol/L (3.5-5.0) 01/20/19 13:57 Chloride 99 mmol/L (101-111) L 01/20/19 13:57 Carbon Dioxide 31 mmol/L (22-32) 01/20/19 13:57 Anion Gap 6 mmol/L (2-11) 01/20/19 13:57 BUN 67 mg/dL (6-24) H 01/20/19 13:57 Creatinine 1.60 mg/dL (0.51-0.95) H 01/20/19 13:57 Est GFR ( Amer) 37.6 (>60) 01/20/19 13:57 Est GFR (Non-Af Amer) 31.1 (>60) 01/20/19 13:57 BUN/Creatinine Ratio 41.9 (8-20) H 01/20/19 13:57 Glucose 231 mg/dL (70-100) H 01/20/19 13:57 Calcium 9.5 mg/dL (8.6-10.3) 01/20/19 13:57 Magnesium 2.4 mg/dL (1.9-2.7) 01/20/19 13:57 Total Bilirubin 0.40 mg/dL (0.2-1.0) 01/20/19 13:57 AST 20 U/L (13-39) 01/20/19 13:57 ALT 18 U/L (7-52) 01/20/19 13:57 Alkaline Phosphatase 84 U/L (34-104) 01/20/19 13:57 Total Creatine Kinase 139 U/L (10-223) 01/20/19 13:57 C-Reactive Protein 50.24 mg/L (<8.01) H 01/20/19 13:57 B-Natriuretic Peptide 190 pg/mL (<=100) H 01/20/19 13:57 Total Protein 7.2 g/dL (6.4-8.9) 01/20/19 13:57 Albumin 3.4 g/dL (3.2-5.2) 01/20/19 13:57 Globulin 3.8 g/dL (2-4) 01/20/19 13:57 Albumin/Globulin Ratio 0.9 (1-3) L 01/20/19 13:57 TSH 1.82 mcIU/mL (0.34-5.60) 01/20/19 13:57 Urine Color Chelsie 01/20/19 14:20 Urine Appearance Turbid 01/20/19 14:20 Urine pH 5.0 (5-9) 01/20/19 14:20 Ur Specific Imperial 1.012 (1.010-1.030) 01/20/19 14:20 Urine Protein Negative (Negative) 01/20/19 14:20 Urine Ketones Negative (Negative) 01/20/19 14:20 Urine Blood 2+ (Negative) A 01/20/19 14:20 Urine Nitrate Negative (Negative) 01/20/19 14:20 Urine Bilirubin Negative (Negative) 01/20/19 14:20 Urine Urobilinogen Negative (Negative) 01/20/19 14:20 Ur Leukocyte Esterase 3+ (Negative) A 01/20/19 14:20 Urine WBC (Auto) 3+(>20/hpf) (Absent) A 01/20/19 14:20 Urine RBC (Auto) 3+(>10/hpf) (Absent) A 01/20/19 14:20 Ur Squamous Epith Cells Present (Absent) A 01/20/19 14:20 Ur Renal Epithelial Cell Present (Absent) A 01/20/19 14:20 Urine Bacteria 1+ (Absent) A 01/20/19 14:20 Urine Glucose Negative (Negative) 01/20/19 14:20 - Objective Active Medications: Acetaminophen (Tylenol Tab*) 650 mg PO Q4H PRN PRN Reason: MILD PAIN or TEMP > 100.4 Hydrocodone Bitart/Acetaminophen (Rich[place] 5-325 Tab*) 1 tab PO BID PRN PRN Reason: PAIN - MODERATE Albuterol (Ventolin Hfa Inhaler*) 2 puff INH Q4H PRN PRN Reason: SHORTNESS OF BREATH Morphine Sulfate (Morphine Oral Concentrate*) 5 mg SL Q2H PRN PRN Reason: comfort Vital Signs: Vital Signs: Temp Pulse Resp BP Pulse Ox 98.2 F 64 16 139/72 95 01/20/19 18:25 01/20/19 18:25 01/20/19 18:25 01/20/19 18:25 01/20/19 18:25 Patient Weight: Weight 96.434 kg Intake and Output: Intake & Output 01/19/19 01/20/19 01/21/19 01/22/19 06:59 06:59 06:59 06:59 Intake Total 450 Output Total 600 Balance -150 Weight 96.434 kg Intake: IV Fluids 450 Oral 0 Output: Lara 600 Other: Estimated Void Medium # Bowel Movements 1 Estimated Stool Amount Small # Voids 1 ADLs: Meal Record Start: 01/20/19 17: 41 Freq: DAILY@0900,1400,1800 Status: Active Protocol: Created 01/20/19 17:41 System (Rec: 01/20/19 17:41 System [id number]) Intake and Output Start: 01/20/19 13: 09 Freq: Status: Active Protocol: Created 01/20/19 13:09 System (Rec: 01/20/19 13:09 System [id number]) Intake and Output Start: 01/20/19 17: 41 Freq: DAILY@0600,1400,2200 Status: Active Protocol: Created 01/20/19 17:41 System (Rec: 01/20/19 17:41 System [id number]) Document 01/20/19 22:00 [id number] (Rec: 01/20/19 22:47 [id number] [id number]) Document 01/21/19 06:00 [id number] (Rec: 01/21/19 06:22 [id number]) Eyes: No Scleral Icterus, PERRLA Ears/Nose/Mouth/Throat: NL Teeth, Lips, Gums, Mucous Membranes Moist Neck: NL Appearance and Movements; NL JVP Cardiovascular: NL Sounds; No Murmurs; No JVD, RRR Abdominal: NL Sounds; No Tenderness; No Distention Extremities: No Edema, No Clubbing, Cyanosis Neurological: NL Muscle Strength and Tone, - - oriented to person - Assessment Assessment: 78 yo female with moderately severe dementia presens to ER with lethargy and altered mental status secondary to dehydration - Plan Consult Plan (MU): Hospice Plan: Spoke with pt and family. New MOLST was completed pt wishes to and be on comfort care and not come back to the hospital, DNR/DNI. Pt doesn't like her life/illness she wants to . I asked about depression but pt isn't interested in antidepressant medication. Family is upset because they thought pt was going to stay here and . Pt this am is awake and answering questions appropriately. She is not in pain but did note it's been awhile since last BM. Pt will most likely go back to [place] and I encouraged them to request a hospice referral from [facility] physician. Hospice information/brochure given. I offered to send a referral to hospice residence but family wants to think about it. I also explained I am not sure pt will qualify for hospice but it will be up to [facility]. Family doesn't like [facility] but isn't interested in changing to another one. Pt needs a camila lift to move her, has a chronic indwelling catheter, self feeds occasionally. Copy of MOLST given to daughter. Potentially hospice eligible with diagnosis of moderate severe dementia, mod pulmonary HTN, CKD and recurrent infections. KPS 40%, PPS 40% - Time On Unit Date of Evaluation: 01/21/19 Hospice Consult Time in: 11:00 Hospice Consult Time Out: 12:30 Hospice Consult Time Total: 90 > 50% of Time Spend In Counseling or Coordinating Care: Yes
[2019-01-22 08:06] VITALS: BP 120/78
--- NOTE | 2019-01-22 11:02 | DS ---
CC: Physician from [facility]; Dr. Márquez * DISCHARGE SUMMARY: DATE OF ADMISSION: 01/20/19 DATE OF DISCHARGE: 01/22/19 PRIMARY CARE PROVIDER: Physician from [facility] DISCHARGE DISPOSITION: To [facility] CONDITION ON DISCHARGE: Stable. DISCHARGE DIAGNOSES: 1. Lethargy and encephalopathy, metabolic, likely related to dehydration and urinary tract infection. 2. Dehydration. 3. Urinary tract infection. SECONDARY DIAGNOSES: 1. History of neurogenic bladder with chronic Lara. 2. Urinary tract infection secondary to above. 3. History of congestive heart failure. 4. History of chronic deep vein thrombosis in right lower extremity. 5. Diabetes type 2. 6. Chronic kidney disease with creatinine 1.3 to 1.6. 7. History of hypertension. 8. Hyperlipidemia. 9. History of chronic obstructive pulmonary disease. 10. Gastroesophageal reflux disease. 11. Crohn's disease. 12. Status post cholecystectomy and appendectomy. 13. History of bilateral carotid stents. 14. Rotator cuff repair. 15. Bilateral carpal tunnel release. 16. Decubitus ulcer on left heel that is 0.5 cm unstageable covered with eschar and stage 1 decubitus ulcer on the left buttock that is also small. Patient is a comfort care patient. She is not to be rehospitalized unless severe symptoms of pain cannot be otherwise controlled. It is recommended for the patient to be referred to hospice upon arrival to [facility]. MEDICATIONS AT DISCHARGE: 1. Morphine oral concentrate 5 mg every 12 hours p.r.n. 2. Enema on a p.r.n. basis for constipation. 3. Senna 750 mg at bedtime. 4. Zofran 4 mg p.r.n. 5. Nitroglycerin sublingually 0.4 mg p.r.n. chest pain. 6. Eucerin cream applied topically to the area on the bottom left heel. 7. Lidocaine 2% jelly applied to painful area daily p.r.n. 8. [place] 5/325 mg 1 tablet b.i.d. p.r.n. 9. Glycerin suppository on a p.r.n. basis for constipation. 10. Albuterol inhaler 2 puffs every 4 hours p.r.n. 11. Acetaminophen 1000 mg for fever or mild pain. CONSULTATIONS DURING HOSPITAL STAY: Dr. Beatriz Márquez from Palliative Services. LABORATORY DATA: Obtained on admission, please refer to History and Physical dictated by myself 2 days ago. HOSPITAL COURSE: Shannon Chatman is a 78-year-old female with history of significant dementia, now [place] lift dependent and bed bound, who has had problems with recurrent infections with lethargy, dehydration, not eating well and recurrent UTI due to her neurogenic bladder and indwelling Lara catheter. It has been 3 weeks since she presented last time to our facility and she came in again with marked lethargy, another bout of UTI. She was also markedly dehydrated. At this point the family stated that patient would not want to live this way and they decided to place patient for comfort care. Nevertheless, just before that, we had treated her. Patient did receive a liter of intravenous fluids and a dose of ceftriaxone. The very next day the patient was awake and able to eat and converse. She confirmed in the presence of the family members that she was to be comfort care. She does not want to take any oral medications or injections for her diabetes, and she just wants to be left alone "to ". Dr. Márquez saw patient in consultation and recommended possibility of antidepressant, but patient and family refused. Comfort care measures MOLST form was started. Patient is today going back to [facility] with continuation of the comfort care measures. All her medications for diabetes, history of DVT and CHF were stopped. She feels well. She is recommended to continue mechanical ground diet. It is recommended that at arrival to [facility] patient is referred to hospice. She is comfort care and do not rehospitalize unless severe symptoms of pain cannot be otherwise controlled. PHYSICAL EXAMINATION AT TIME OF DISCHARGE: Vital Signs: 120/78. Heart rate of 95 and regular. Respiratory rate 22. Oxygen saturation 98% on 2 liters of oxygen by nasal cannula. Temperature 98.0. General: This is a 78-year-old female who is in no acute distress. Patient is alert and oriented x2. HEENT: Head atraumatic, normocephalic. Eyes: Pupils are equal and reactive to light and accommodation. Oropharynx clear. Mucosa moist. Neck: Supple. No JVD. No bruit bilaterally. Cardiovascular: Regular rate and rhythm. No murmur. Respiratory: Mild coarse rhonchi in bilateral upper lungs, otherwise clear. Abdomen: Soft, nontender. Bowel sounds are present in all 4 quadrants. Extremities: There is +1 pedal edema bilaterally. Pulses +2 bilaterally. No clubbing or cyanosis. Skin: Patient has unstageable, covered with eschar, small area 0.5 cm of decubitus on the left heel. She also has mild stage 1 to 2 decubitus on her right buttock also 102 cm. Neurologic: Patient is grossly intact. Her speech is clear. Cranial nerves II through XII grossly intact. Motor strength is 5/5 bilaterally. Patient is pleasant, conversational, but very forgetful. Please note that this is a short summary of the patient's hospital stay. Please refer to further medical records for details. Approximately 45 minutes was spent on patient's discharge. [id number]/[facility] #: [id number] MTDD
== END 2019-01-22 13:00 | DRG 698 ==
LOC: ED 12:55 → MED 16:49
PROVIDERS: ADMIT Internal Medicine; ATTEND Internal Medicine
DX: T83.511A Infection and inflammatory reaction due to indwelling urethral catheter, initial encounter (principal); G93.41 Metabolic encephalopathy; I13.0 Hypertensive heart and chronic kidney disease with heart failure and stage 1 through stage 4 chronic kidney disease, or unspecified chronic kidney disease; I50.32 Chronic diastolic (congestive) heart failure; K50.90 Crohn's disease, unspecified, without complications; N39.0 Urinary tract infection, site not specified; L89.321 Pressure ulcer of left buttock, stage 1; E86.0 Dehydration; J44.9 Chronic obstructive pulmonary disease, unspecified; E11.22 Type 2 diabetes mellitus with diabetic chronic kidney disease; L89.620 Pressure ulcer of left heel, unstageable; N31.9 Neuromuscular dysfunction of bladder, unspecified; R13.10 Dysphagia, unspecified; Z51.5 Encounter for palliative care; F03.90 Unspecified dementia, unspecified severity, without behavioral disturbance, psychotic disturbance, mood disturbance, and anxiety; N18.9 Chronic kidney disease, unspecified; B96.20 Unspecified Escherichia coli [E. coli] as the cause of diseases classified elsewhere; I25.10 Atherosclerotic heart disease of native coronary artery without angina pectoris; E78.5 Hyperlipidemia, unspecified; K21.9 Gastro-esophageal reflux disease without esophagitis; Z66 Do not resuscitate; Z86.718 Personal history of other venous thrombosis and embolism; Z74.01 Bed confinement status; Z79.01 Long term (current) use of anticoagulants; Z79.1 Long term (current) use of non-steroidal anti-inflammatories (NSAID); Z79.82 Long term (current) use of aspirin; Z79.4 Long term (current) use of insulin; Z79.51 Long term (current) use of inhaled steroids; Z79.899 Other long term (current) drug therapy; Z88.5 Allergy status to narcotic agent; Z88.0 Allergy status to penicillin; Z88.2 Allergy status to sulfonamides
CPT/HCPCS: 36415; 70450; 71045; 80053; 81003; 81015; 82550; 82803; 83735; 83880; 84443; 85025; 85610; 86140; 87040; 87077; 87086; 87186; 93005; 99284; A9270-GY; J0696; J2310